=== PATIENT | female | born 1950 | race Caucasian/White ===

== ENCOUNTER 2020-10-06 18:45 | Outpatient (REF) | payer OTHER, MEDICARE, SELFPAY ==
[2020-10-06 13:51] LABS: ALT 84 U/L (14-59); AST 55 U/L (15-37); Albumin 3.6 g/dL (3.4-5.0); Alkaline Phosphatase 89 U/L (46-116); Anion Gap 6.2 mmol/L (3-11); BUN 16 mg/dL (7-18); Bilirubin, Total 0.4 mg/dL (0.2-1.0); CO2 28.8 mmol/L (21.0-32.0); CREATININE 0.88 mg/dL (0.55-1.02); Calcium 8.9 mg/dL (8.5-10.1); Calculated LDL 145 mg/dL (<100); Chloride 103 mmol/L (98-107); Cholesterol 213 mg/dL (<200); Glucose 99 mg/dL (74-106); HDL Cholesterol 41 mg/dL (40-60); Potassium 4.6 mmol/L (3.5-5.1); Sodium 138 mmol/L (136-145); TSH 2.62 uIU/mL (0.36-3.74); Total Protein 7.6 g/dL (6.4-8.2); Triglyceride 138 mg/dL (<150)
[2020-10-06 14:02] LABS: Vitamin D 25 Total 57.2 ng/ml (30-100)
[2020-10-06 14:53] LABS: Hemoglobin A1C 5.8 % (<5.7)
[2020-10-06 14:58] LABS: FREE T4 1.42 ng/dL (0.76-1.46)
== END 2020-10-06 19:05 ==
LOC: LBN 18:45
PROVIDERS: PCP Nurse Practitioner Family; Visit Provider Nurse Practitioner Family
DX: E03.9 Hypothyroidism, unspecified (principal); M85.80 Other specified disorders of bone density and structure, unspecified site
CPT/HCPCS: 80053; 80061; 82306; 83036; 84439; 84443

== ENCOUNTER 2020-10-31 11:24 | Outpatient (CLI) | payer OTHER, MEDICARE, SELFPAY ==
--- NOTE | 2020-10-31 11:00 | DI.RAD_ITS ---
EXAM: XR STANDING ALIGNMENT CLINICAL HISTORY: eval R knee OA for TKA. TECHNIQUE: 2D digital imaging was performed. COMPARISON: No exams were available for comparison FINDINGS: There is significant degenerative changes knees, most prominent in the medial compartment of the righ t knee where there is mlev-oh-suro apposition. Moderate narrowing of the medial compartment of the o pposite-left knee is noted. Hips appear relatively unremarkable as do the ankles. No lytic osseous lesions evident. IMPRESSION: DATA REPOSITORY: RADIATION DOSE DELIVERED:
--- NOTE | 2020-10-31 11:34 | DI.RAD_ITS ---
EXAM: XR KNEE RT 1V CLINICAL HISTORY: eval R knee, TKA. TECHNIQUE: 2D digital imaging was performed. COMPARISON: CR XR STANDING ALIGNMENT from 10/31/2020 FINDINGS: Single lateral view of the right knee reveals advanced osteoarthritic degenerative changes. This als o involves the patellofemoral compartment IMPRESSION: DATA REPOSITORY: RADIATION DOSE DELIVERED:
== END 2020-10-31 11:44 ==
PROVIDERS: PCP Nurse Practitioner Family; Referring Provider Nurse Practitioner Family; Visit Provider Student in an Organized Health Care Education/Training Program
DX: Z96.651 Presence of right artificial knee joint (principal)
CPT/HCPCS: 73560; 77073

== ENCOUNTER 2021-01-30 01:56 | Outpatient (CLI) | payer OTHER, MEDICARE, SELFPAY ==
[2021-01-30 10:20] LABS: Source Nasal/Nares
[2021-01-30 13:33] LABS: COVID-19 PCR Negative (Negative)
== END 2021-01-30 01:57 | disposition home or self-care (01) ==
LOC: LBO 01:56
PROVIDERS: PCP Nurse Practitioner Family; Visit Provider Student in an Organized Health Care Education/Training Program
DX: Z20.822 Contact with and (suspected) exposure to COVID-19 (principal); Z01.818 Encounter for other preprocedural examination
CPT/HCPCS: 87635; U0003

== ENCOUNTER 2021-01-30 02:17 | Outpatient (CLI) | payer OTHER, MEDICARE, SELFPAY ==
[2021-01-30 09:21] LABS: HCT 48.3 % (36.0-46.0); HGB 15.7 g/dL (11.2-15.7); MCH 30.3 pg (27.0-33.0); MCHC 32.5 % (32.0-36.0); MCV 93.1 fL (80-95); MPV 11.6 fL (8.0-11.0); Platelet Count 274 10^3/uL (130-400); RBC 5.19 10^6/uL (3.93-5.22); RDW 12.6 % (11.7-14.6); RDW-SD 43.2 fL; WBC 9.52 10^3/uL (4.4-10.8)
[2021-01-30 10:09] LABS: ALT 71 U/L (14-59); AST 41 U/L (15-37); Albumin 3.5 g/dL (3.4-5.0); Alkaline Phosphatase 90 U/L (46-116); Anion Gap 6.2 mmol/L (3-11); BUN 14 mg/dL (7-18); Bilirubin, Total 0.4 mg/dL (0.2-1.0); CO2 32.8 mmol/L (21.0-32.0); CREATININE 0.8 mg/dL (0.55-1.02); Calcium 9.2 mg/dL (8.5-10.1); Chloride 105 mmol/L (98-107); Glucose 89 mg/dL (74-106); Potassium 4.9 mmol/L (3.5-5.1); Sodium 144 mmol/L (136-145); Total Protein 7.6 g/dL (6.4-8.2)
[2021-02-02 11:04] LABS: Hepatitis C Ab w Rflx HCV PCR Negative (Negative)
== END 2021-01-30 02:18 | disposition home or self-care (01) ==
PROVIDERS: PCP Nurse Practitioner Family; Visit Provider Student in an Organized Health Care Education/Training Program
DX: R79.89 Other specified abnormal findings of blood chemistry (principal); M25.561 Pain in right knee; M17.11 Unilateral primary osteoarthritis, right knee; Z11.59 Encounter for screening for other viral diseases; Z01.818 Encounter for other preprocedural examination; Z01.812 Encounter for preprocedural laboratory examination
CPT/HCPCS: 36415; 80048; 80053; 85027; 86803

== ENCOUNTER 2021-02-03 06:04 | Day surgery (SDC) | payer OTHER, MEDICARE, SELFPAY ==
[2021-02-03] VITALS (12 sets, daily range): BP systolic 103–155; BP diastolic 54–94; PULSE 70–86; RESP 12–20; TEMP 35.9–36.2; TEMPC 36.2; O2SAT 95–98; BMI 42.0
[2021-02-03] MEDS: Lactated Ringers 1,000 ML 80 ML IV (06:48)
[2021-02-03] MEDS: Gabapentin 300 MG CAP PO (06:48)
[2021-02-03] MEDS: Celecoxib 200 MG CAP 400 MG PO (06:48)
[2021-02-03] MEDS: Acetaminophen 500 MG TAB 1000 MG PO (06:48)
--- NOTE | 2021-02-03 06:48 | W.ANESPRE ---
General Info Date of Service Date Performed: 02/03/21 Height: 5 ft 4.5 in Weight: 113 kg Body Mass Index (BMI): 42.0 Surgical Procedure: Operation Date: 02/03/21 07:40 Proposed Procedures Side Surgeon p Knee Total Arthroplasty Right Eron Guerrero MD Meds Allergies and Home Medications Allergies Allergy/AdvReac Type Severity Reaction Status Date / Time epinephrine Allergy Unknown Other (See Unverified 02/03/21 06:37 Comment) Home Medication Medication Instructions Recorded ibuprofen 200 mg tablet 200 mg PO Q6H PRN 10/06/20 Synthroid 125 mcg tablet 125 mcg PO DAILY #90 tab NS 10/08/20 calcium carbonate 600 mg (1,500 1 cap PO DAILY 11/06/20 mg)-vitamin D3 500 unit capsule Current Visit Medications: Current Medications Generic Name Dose Route Start Last Admin Trade Name Freq PRN Reason Stop Dose Admin Acetaminophen 1,000 mg 02/03/21 06:00 Acetaminophen 500 Mg Tab PO 02/03/21 16:00 PREOP SOURAV Celecoxib 400 mg 02/03/21 06:00 Celecoxib 200 Mg Cap PO 02/03/21 16:00 PREOP SOURAV Ephedrine Sulfate 0 mg 02/03/21 06:46 Ephedrine 50 Mg/Ml Vial IVP DIRECTED PRN Fentanyl 0 mcg 02/03/21 06:46 Fentanyl 100 Mcg/2 Ml Vial IVP DIRECTED PRN Gabapentin 300 mg 02/03/21 06:00 Gabapentin 300 Mg Cap PO 02/03/21 16:00 PREOP SOURAV Hydromorphone HCl 0 mg 02/03/21 06:46 Hydromorphone 2 Mg/Ml Vial IVP DIRECTED PRN Tranexamic Acid 1,000 mg/ 60 mls @ 360 mls/hr 02/03/21 06:00 Sodium Chloride IVPB 02/03/21 16:00 PREOP SOURAV Tranexamic Acid 1,000 mg/ 60 mls @ 360 mls/hr 02/03/21 06:00 Sodium Chloride IVPB 02/03/21 16:00 DIRECTED SOURAV Ringer's Solution 1,000 mls @ 80 mls/hr 02/03/21 06:00 IV 03/04/21 23:59 INFUSION SOURAV Cefazolin Sodium/Dextrose 2 gm in 50 mls @ 100 mls/hr 02/03/21 06:00 Ancef Duplex IVPB 02/03/21 23:59 PREOP SOURAV IV Miscellaneous Supplies 1 each 02/03/21 06:00 Iv Access IV 03/04/21 23:59 DIRECTED SOURAV Naloxone HCl 0 mg 02/03/21 06:46 Naloxone 0.4 Mg/Ml Vial IVP PRN PRN Sodium Chloride 0 ml 02/03/21 06:00 Normal Saline Flush 10 Ml Syr IV 03/04/21 23:59 PRN PRN Sodium Chloride 0 ml 02/03/21 06:00 Normal Saline 10 Ml Vial IJ 03/04/21 23:59 DIRECTED PRN Sterile Water 0 ml 02/03/21 06:00 Water,Injection,Sterile 10 Ml Vial IJ 03/04/21 23:59 DIRECTED PRN PFSH Active Problems Active Problems: Problem Status Onset Code Osteoarthritis of left knee M17.12 Prediabetes R73.03 Osteoarthritis of right knee M17.11 Hyperlipidemia E78.5 Depressive disorder F32.9 Rosacea L71.9 Obesity E66.9 Vitamin D deficiency E55.9 Osteopenia M85.80 Hypothyroidism E03.9 Medical History Medical History Depressive disorder Endometrial hyperplasia without atypia Hyperlipidemia Hypothyroidism Obesity Osteopenia 2017 DEXA T score L-spine 0.3: L femoral neck -1.3; right femoral neck -1.1 Postmenopausal bleeding Prediabetes Rosacea Vitamin D deficiency Surgical History Surgical History H/O dilation and curettage (~04/2016) With endometrial polypectomy for postmenopausal vaginal bleeding S/P right knee arthroscopy (05/01/13) S/P tonsillectomy and adenoidectomy Tobacco Smoking/Tobacco Use Status: Never Passive smoking exposure: Yes Alcohol Alcohol Intake: current Alcohol intake frequency: a few times a month Alcohol type: wine and hard liquor Substance Use Substance use: Never Substance use type: does not use Prental History History 2 Para 1 Hx # Term Pregnancies Multiple births Hx # Pregnancies Ectopic pregnancies AB induced Hx Number of Living Children 1 AB spontaneous 2 Vital Signs and Lab Results Vital Signs Most Recent Vital Signs in EMR: Most Recent Vital Signs Temp Pulse Resp BP Pulse Ox 36.2 C L 86 16 146/78 H 95 05/04/21 06:20 02/03/21 06:20 02/03/21 06:20 02/03/21 06:20 02/03/21 06:20 Lab Results Blood Type / Crossmatch: No Data to Display Complete Blood Count: White Blood Count 9.52 10^3/uL (4.4-10.8) 01/30/21 09:11 01/30/21 Red Blood Count 5.19 10^6/uL (3.93-5.22) 01/30/21 09:11 01/30/21 Hemoglobin 15.7 g/dL (11.2-15.7) 01/30/21 09:11 01/30/21 Hematocrit 48.3 % (36.0-46.0) H 01/30/21 09:11 01/30/21 Platelet Count 274 10^3/uL (130-400) 01/30/21 09:11 01/30/21 Complete Metabolic Panel: Sodium Level 144 mmol/L (136-145) 01/30/21 09:11 01/30/21 Potassium Level 4.9 mmol/L (3.5-5.1) 01/30/21 09:11 01/30/21 Chloride Level 105 mmol/L (98-107) 01/30/21 09:11 01/30/21 Carbon Dioxide Level 32.8 mmol/L (21.0-32.0) H 01/30/21 09:11 01/30/21 Blood Urea Nitrogen 14 mg/dL (7-18) 01/30/21 09:11 01/30/21 Creatinine 0.8 mg/dL (0.55-1.02) 01/30/21 09:11 01/30/21 Calcium Level 9.2 mg/dL (8.5-10.1) 01/30/21 09:11 01/30/21 Albumin 3.5 g/dL (3.4-5.0) 01/30/21 09:11 01/30/21 Glucose Level 89 mg/dL (74-106) 01/30/21 09:11 01/30/21 Hemoglobin A1c 5.8 % (<5.7) H 10/06/20 08:50 10/06/20 Liver Function Panel: Alanine Aminotransferase (ALT/SGPT) 71 U/L (14-59) H 01/30/21 09:11 01/30/21 Aspartate Amino Transf (AST/SGOT) 41 U/L (15-37) H 01/30/21 09:11 01/30/21 Coagulation Panel: No Data to Display Cardiac Panel: No Data to Display Arterial Blood Gas: No Data to Display Venous Blood Gas: No Data to Display Pancreas Panel: No Data to Display Thyroid Panel: Thyroid Stimulating Hormone (TSH) 2.62 uIU/mL (0.36-3.74) 10/06/20 08:50 10/06/20 Infectious Disease: Coronavirus (COVID-19)(PCR) Negative (Negative) 01/30/21 09:18 01/30/21 Coronavirus 2019 Source Nasal/nares 01/30/21 09:18 01/30/21 Hepatitis C Antibody Negative (Negative) 01/30/21 09:11 01/30/21 Blood Cultures: No Data to Display Toxicology Panel: No Data to Display Panel: No Data to Display Anesthesia Assessment and Plan Anesthesia History Personal History: No History of Anesthesia Complications Family History: No Family History of Anesthesia Complications Exercise Tolerance Exercise Tolerance: Metabolic Equivalents>4 Pertinent Negatives Pertinent Negatives: No Symptoms of GERD, No Major Cardiovascular Symptoms or Complaints and No Major Pulmonary Symptoms or Complaints (Reports occaisional ) Cardiac & Pulmonary Exam Cardiac Exam: Normal S1/S2 Heart Sounds Pulmonary Exam: Wheezing Present (Expiratory) Airway Exam Known Difficult Airway: No Mallampati Class: 3 Mouth Opening: Normal (> 3cm) Thyromental Distance: Greater than 3 cm Neck Range of Motion: Full ROM Neck Circumference: Normal Teeth Condition: Normal Dentition ASA Classification ASA Score: ASA 3 ASA Emergency: No NPO Status NPO Status: NPO Clears >2 hours, Solids >8 hours Anesthesia Plan Anesthesia Technique: Spinal Anesthesia (with general with natural airway) Airway Planned: Natural Airway Pain Management: Surgeon and patient request nerve block Monitors Used: Standard Monitors
--- NOTE | 2021-02-03 07:31 | DSE_ITS ---
Documented by User: BELL Diallo 02/03/21 07:37 DS: Diagnosis Discharge Diagnosis (1) Osteoarthritis of right knee: Status: Acute Discharge Plan Disposition Patient Disposition: HOME Condition: Good Discharge Details Reason For Visit: Right Knee DJD Attending Provider: Eron Guerrero Primary Care Provider: Maryellen Painter Home Meds and New Rx's Prescriptions: New celecoxib [Celebrex] 200 mg capsule 200 mg PO BID Qty: 60 RF: 0 aspirin 81 mg tablet,delayed release (DR/EC) 81 mg PO BID Qty: 60 RF: 0 acetaminophen [Tylenol Extra Strength] 500 mg tablet 500 mg PO Q6H PRNQty: 90 RF: 0 pantoprazole [Protonix] 40 mg tablet,delayed release (DR/EC) 40 mg PO DAILY Qty: 30 RF: 0 gabapentin 300 mg capsule 300 mg PO QHS Qty: 14 RF: 0 oxycodone 5 mg tablet 5 mg PO Q4H PRNQty: 18 RF: 0 Continued calcium carbonate-vitamin D3 [Calcium 600 with Vitamin D3] 600 mg(1,500mg) - 500 unit capsule 1 cap PO DAILY RF: 0 levothyroxine [Synthroid] 125 mcg tablet 125 mcg PO DAILY Qty: 90 RF: 4 Discontinued ibuprofen 200 mg tablet 200 mg PO Q6H PRNRF: 0 Discharge Instructions Additional Instructions: Total Knee Discharge Instructions Activity: The most important activity is to walk. You should try to take short walks a few times a day. It is important that when resting you work on keeping the knee straight. Avoid putting a pillow behind the knee as this will encourage flexion. Work on range of motion exercises as provided by Physical Therapy. - Start outpatient physical therapy within 2 weeks. - You should wear the VALERIY hose on both legs for 2 weeks. You may remove these at night. You may also use any compression sock in place of the VALERIY hose. Dressing: You may remove the Ronal wrap on your leg 2 days after your surgery and put on the VALERIY stocking given to you from the hospital. Keep the surgical dressing (underneath the RONAL wrap) in place for at least one week. After the first week it may be removed and replaced with light gauze and tape or nothing. The wound and dressing may get wet after 3 days but avoid soaking the dressing or otherwise it will need to be changed. Many people prefer covering the dressing with cling wrap (saran wrap) to minimize it from getting soaked. If it gets wet, just pat dry. If it starts to peel off then it will need to be changed. Medications: - You should take Tylenol and anti-inflammatory Celebrex as your primary pain control medications. If the Celebrex is too expensive or not covered, please call the office for another alternative (Advil/Ibuprofen or Naproxen/Aleve) - You have been prescribed a stronger pain medication Oxycodone for breakthrough pain, take as needed as prescribed. - You have also been prescribed a stomach acid reduction agent Pantoprozole to help reduce stomach acid and reflux. - You have been prescribed Gabapentin to take at night for restlessness and nerve pain. - You will be taking Aspirin 81mg twice a day for DVT prevention unless instructed otherwise. - If you have constipation you should take Colace or Miralax (both [id number]). It takes most people 3-4 days to have a bowel movement. Follow-up: 2 weeks If you have any acute concerns or questions, please do not [facility] at [phone]. You may contact Dr. Guerrero with any questions after hours through the hospital at [phone] or on his cell phone at [phone]. Referrals: Eron Guerrero MD [ [facility] STAFF PHYSICIAN] - Equipment/Supplies: Walker Activity:: Activity as Tolerated Remove Dressings/Wound Care:: Do Not Remove Shower/Bathe:: 72 hours Diet:: As Tolerated Discharge Orders Discharge Orders: Discharge Order (Routine); Ordered 02/03/21 Ordered By: Sonia Gonzales DS: Summary Time Spent with Patient providing and/or coordinating discharge services: Less than 30 minutes Status at Discharge Functional status at discharge: uses cane/walker Overall status at discharge: patient is progressing back to baseline Mental Status: mental status grossly normal Speech and Movement: speech and movement normal Mood: congruent mood Affect: normal affect Exam Psych Mental Status: mental status grossly normal Speech and Movement: speech and movement normal Mood: congruent mood Affect: normal affect DS: Data Vitals/I&O Vitals and I&O: Vital Signs Temperature 97.2 F L 02/03/21 06:20 Pulse 86 02/03/21 06:20 Pulse Rhythm Regular 02/03/21 06:20 Respiratory Rate 16 02/03/21 06:20 Respiratory Depth Normal 02/03/21 06:20 Blood Pressure 146/78 H 02/03/21 06:20 Pulse Oximetry 95 02/03/21 06:20 Oxygen Delivery Method Room Air 02/03/21 06:20 Oxygen Flow Rate 0 02/03/21 06:20 Pain Level 0 02/03/21 06:20 Intake & Output 02/02/21 02/02/21 02/03/21 11:59 23:59 11:59 Weight 249 lb 1.957 oz Other: Voiding Methods Toilet [facility] Medical History Depressive disorder Endometrial hyperplasia without atypia Hyperlipidemia Hypothyroidism Obesity Osteopenia 2017 DEXA T score L-spine 0.3: L femoral neck -1.3; right femoral neck -1.1 Postmenopausal bleeding Prediabetes Rosacea Vitamin D deficiency Surgical History H/O dilation and curettage (~04/2016) With endometrial polypectomy for postmenopausal vaginal bleeding S/P right knee arthroscopy (05/01/13) S/P tonsillectomy and adenoidectomy Family History Mother , 83 Renal cancer Depression Heart disease Father , 86 Heart disease Son Alcohol abuse Depression COPD (chronic obstructive pulmonary disease) Paternal Grandfather No problems noted. Paternal Grandmother Diabetes Kidney disease Maternal Grandfather No problems noted. Maternal Grandmother Depression Social History Smoking/Tobacco Use Status: Never Smoking risk assessment performed?: Yes Alcohol Intake: current Alcohol Intake frequency: a few times a month Alcohol type: wine and hard liquor Drug use: Never Substance use type: does not use Caregiver/Support person: No Household members: spouse Housing: house Communication Needs: None Do you need help understanding health information?: Never Pets and animals: Yes Pets and animals: cat(s) Sexually active: Yes Do you think of yourself as: lesbian/ortiz/homosexual Current gender identity: female What is your relationship status?: How often do you talk on the phone with friends or family?: once per week How often do you attend methodist or advent services?: 4 or more times per year Do you belong to any clubs or organized social groups?: no Panel score (0-1 are the most socially isolated patients): 2 What type of physical activity do you participate in: swimming and other Details: gardening Duration: 45-60 minutes/day Frequency: 3-4 times per week Inna/Lutheran: Congregational Seatbelt use: always Helmet use: Yes Helmet use: always Drive intox or ride w/intox 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 Documented by User: Eron Guerrero MD 02/03/21 13:17 Date of service: 02/03/21 Time of Service: 13:17 Discharge Plan Disposition Patient Disposition: HOME Condition: Good Discharge Details Reason For Visit: Right Knee DJD Attending Provider: Eron Guerrero Primary Care Provider: Maryellen Painter Home Meds and New Rx's Prescriptions: New celecoxib [Celebrex] 200 mg capsule 200 mg PO BID Qty: 60 RF: 0 aspirin 81 mg tablet,delayed release (DR/EC) 81 mg PO BID Qty: 60 RF: 0 acetaminophen [Tylenol Extra Strength] 500 mg tablet 500 mg PO Q6H PRNQty: 90 RF: 0 pantoprazole [Protonix] 40 mg tablet,delayed release (DR/EC) 40 mg PO DAILY Qty: 30 RF: 0 gabapentin 300 mg capsule 300 mg PO QHS Qty: 14 RF: 0 oxycodone 5 mg tablet 5 mg PO Q4H PRNQty: 18 RF: 0 Continued calcium carbonate-vitamin D3 [Calcium 600 with Vitamin D3] 600 mg(1,500mg) - 500 unit capsule 1 cap PO DAILY RF: 0 levothyroxine [Synthroid] 125 mcg tablet 125 mcg PO DAILY Qty: 90 RF: 4 Discontinued ibuprofen 200 mg tablet 200 mg PO Q6H PRNRF: 0 Discharge Instructions Additional Instructions: Total Knee Discharge Instructions Activity: The most important activity is to walk. You should try to take short walks a few times a day. It is important that when resting you work on keeping the knee straight. Avoid putting a pillow behind the knee as this will encourage flexion. Work on range of motion exercises as provided by Physical Therapy. - Start outpatient physical therapy within 2 weeks. - You should wear the VALERIY hose on both legs for 2 weeks. You may remove these at night. You may also use any compression sock in place of the VALERIY hose. Dressing: You may remove the Ronal wrap on your leg 2 days after your surgery and put on the VALERIY stocking given to you from the hospital. Keep the surgical dressing (underneath the RONAL wrap) in place for at least one week. After the first week it may be removed and replaced with light gauze and tape or nothing. The wound and dressing may get wet after 3 days but avoid soaking the dressing or otherwise it will need to be changed. Many people prefer covering the dressing with cling wrap (saran wrap) to minimize it from getting soaked. If it gets wet, just pat dry. If it starts to peel off then it will need to be changed. Medications: - You should take Tylenol and anti-inflammatory Celebrex as your primary pain control medications. If the Celebrex is too expensive or not covered, please call the office for another alternative (Advil/Ibuprofen or Naproxen/Aleve) - You have been prescribed a stronger pain medication Oxycodone for breakthrough pain, take as needed as prescribed. - You have also been prescribed a stomach acid reduction agent Pantoprozole to help reduce stomach acid and reflux. - You have been prescribed Gabapentin to take at night for restlessness and nerve pain. - You will be taking Aspirin 81mg twice a day for DVT prevention unless instructed otherwise. - If you have constipation you should take Colace or Miralax (both [id number]). It takes most people 3-4 days to have a bowel movement. Follow-up: 2 weeks If you have any acute concerns or questions, please do not hesitate to contact the office at [phone]. You may contact Dr. Guerrero with any questions after hours through the hospital at [phone] or on his cell phone at [phone]. Referrals: Eron Guerrero MD [ [facility] STAFF PHYSICIAN] - Equipment/Supplies: Walker Activity:: Activity as Tolerated Remove Dressings/Wound Care:: Do Not Remove Shower/Bathe:: 72 hours Diet:: As Tolerated Discharge Orders Discharge Orders: Discharge Order (Routine); Ordered 02/03/21 Ordered By: Sonia Gonzales [facility] Medical History Depressive disorder Endometrial hyperplasia without atypia Hyperlipidemia Hypothyroidism Obesity Osteopenia 2016 DEXA T score L-spine 0.3: L femoral neck -1.3; right femoral neck -1.1 Postmenopausal bleeding Prediabetes Rosacea Vitamin D deficiency Surgical History H/O dilation and curettage (~04/2016) With endometrial polypectomy for postmenopausal vaginal bleeding S/P right knee arthroscopy (05/01/13) S/P tonsillectomy and adenoidectomy Family History Mother , 83 Renal cancer Depression Heart disease Father , 86 Heart disease Son Alcohol abuse Depression COPD (chronic obstructive pulmonary disease) Paternal Grandfather No problems noted. Paternal Grandmother Diabetes Kidney disease Maternal Grandfather No problems noted. Maternal Grandmother Depression Social History Smoking/Tobacco Use Status: Never Smoking risk assessment performed?: Yes Alcohol Intake: current Alcohol Intake frequency: a few times a month Alcohol type: wine and hard liquor Drug use: Never Substance use type: does not use Caregiver/Support person: No Household members: spouse Housing: house Communication Needs: None Do you need help understanding health information?: Never Pets and animals: Yes Pets and animals: cat(s) Sexually active: Yes Do you think of yourself as: lesbian/ortiz/homosexual Current gender identity: female What is your relationship status?: How often do you talk on the phone with friends or family?: once per week How often do you attend methodist or advent services?: 4 or more times per year Do you belong to any clubs or organized social groups?: no Panel score (0-1 are the most socially isolated patients): 2 What type of physical activity do you participate in: swimming and other Details: gardening Duration: 45-60 minutes/day Frequency: 3-4 times per week Inna/Lutheran: Congregational Seatbelt use: always Helmet use: Yes Helmet use: always Drive intox or ride w/intox 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
[2021-02-03] MEDS: ceFAZolin 2 GM/50 ML BAG IVPB (07:36)
--- NOTE | 2021-02-03 08:15 | W.ANESNERVE ---
Nerve Block Single Injection Procedure Date and Time Date Performed: 02/03/21 Procedure Start: 07:22 Location Where Procedure Performed Procedure Location: PACU Reason Performed: Postoperative Analgesia Requesting Provider: Eron Guerrero Timeout Performed Timeout Performed: Yes Monitoring Used ECG, Blood Pressure and SpO2 Sterility Sterility: Hand Hygiene, Surgical Cap, Surgical Mask, Sterile Gloves and Chlorhexidine Sedation Given During Procedure Sedation Given (Indicate Dose Given): No Sedation given Patient Mental Status Patient Mental Status: Awake Nerve Block 1st Nerve Block: Laterality: Right Block Type: Adductor Canal Needle / Catheter Used: 100mm SonoPlex II Local Anesthetic Bolus (Indicate Dose Given): Lidocaine used for local infiltration of skin, Injected in 3-5ml increments after negative blood aspiration and Bupivacaine 0.5% (10) Additives (Indicate Dose Given): None Ultrasound: Sterile probe cover and gel used Ultrasound Image Saved?: Yes Nerve Stimulator: Not Used Paresthesia: None Procedure Tolerated: No Complications Procedure Outcome: Successful Performed By: El Olguin
[2021-02-03] MEDS: Normal Saline 20 ML VIAL (08:27)
[2021-02-03] MEDS: Bupivacaine 0.5% Pres-Free 30 ML VIAL (08:27)
[2021-02-03] MEDS: Ketorolac 30 MG/ML VIAL (08:28)
--- NOTE | 2021-02-03 10:20 | ROE_ITS ---
Date of service: 02/03/21 Time of Service: 10:21 Operative Note Operative Note DATE OF PROCEDURE: 02/03/21 PRE-OP DIAGNOSIS: Right Knee Osteoarthritis POST-OP DIAGNOSIS: same PROCEDURE: Right Total Knee Replacement SURGEON: Eron Guerrero [employer]ING [employer] ATTENDANT: Sonia Gonzales ANESTHESIA TYPE: Spinal Refer to Anesthesia Record ESTIMATED BLOOD LOSS: 250 PATHOLOGY: none sent TOURNIQUET TIME: 30 COMPLICATIONS: None Patient was transported to: PACU Patient's condition: stable Implants: 1. Depuy Attune Cruciate Retaining Femoral Component, Size 5 narrow 2. Depuy Attune Rotating Platform Tibial Component, Size 4 3. Depuy Attune 5x7mm CR,RP Poly 4. Depuy Attune Patellar Component, Size 38 Indications: I have seen Sara in clinic for symptoms of knee arthritis, confirmed with radiographic findings. Sara has exhausted nonoperative methods and was having significant limitations in daily function and desired better function and less pain. I discussed the technical details of a knee replacement. I explained the risks of the procedure to include, but not limited to, bleeding, infection, pain, stiffness, fracture, damage to nerves and vessels, damage to muscles and tendons, loosening, need for repeat procedure, blood clot and cardiopulmonary demise. Despite these risks, Sara elected to proceed. Findings: There was significant signs of arthritis throughout the knee. Procedure Description: Sara was greeted in the preoperative holding area where the correct side was identified and marked. The consent was reviewed with the patient and signed. The history and physical was updated. All questions were answered. Preoperative mediacations were administered: Acetaminophen 1000mg, Celebrex 400mg, and Gabapentin 300mg. An adductor canal block was then administered by the anesthesia team in the PACU. Sara was taken back to the operating room. A spinal anesthestic was then administered. The patient was placed into the supine position on the operating room table. A nonsterile tourniquet was placed high onto the leg but only used for cementing. Posts were placed for positioning during the procedure. All bony prominences were well padded. Prophylactic antibiotics in the form of Cefazolin were administered. 1g of Tranxemic Acid was given intravenously within 30 minutes of incision. The right leg was then prepped with Chloraprep and draped in a standard fashion with impervious stockinette and extremity drape. A second prep with Chloraprep was performed prior to placing Ioband. A timeout to confirm correct identity, side and site, procedure, allergies, anesthesia, and medical concerns was performed. With the knee in some flexion, a midline incision was made overlying the knee. Full thickness skin flaps were raised once the extensor mechanism was encountered. These were raised medially and laterally. Any bleeding was controlled with electrocautery. Once the extensor mechanism was fully exposed, a medial parapatellar arthrotomy was performed in a flexed position. All bleeding from the arthrotomy and the geniculate arteries was coagulated. A medial subperiosteal peel was performed with electrocautery to the midcoronal plane. Due to the significant varus deformity the entire medial tibial plateau was exposed. The fat pad was removed while keeping the patellar tendon protected. The anterior distal femur synovium was removed for later visualization. The ACL and PCL were resected and the anterior horn of the lateral meniscus was transected. The knee was then flexed with the patella everted. Large osteophytes from the tibia were removed. Large osteophytes from the femur were removed. Using a step drill, and based on preoperative templating, the femoral canal was entered. This was done with a step drill without any difficulty. The intramedullary distal femoral cut guide was inserted, set to a 5 degree valgus cut and 10mm cut thickness. There was some hypoplasia of the lateral femoral condyle and any remnant cartilage of the medial femoral condyle was removed for appropriate thickness. The distal femoral cut guide was then held in position and pinned. With the soft tissues protected, the distal cut was performed. This was passed over a few times to ensure a planar cut. I then turned attention to the tibia. The extramedullary guide was placed onto the leg. The distal aspect was slid medial to adjust for position of center of ankle and stay in line with shaft of the tibia. Approximately 3-5 degrees of posterior slope was kept in the proximal cutting guide. The center of the guide was aligned with the PCL. The stylus was used to assess cut thickness. The medial side, most involved side, was set for a 3mm cut, corresponding to 9mm laterally. This was then held in position and pinned into place with 2 additional pins and a cross pin for stability. The medial and lateral collateral ligaments were protected and the cut was performed. With this completed, it was assessed and noted to be of appropriate dimensions. The guide was removed. A spacer block was inserted and the knee was brought into extension. The 6mm spacer block provided full extension, without hyperextension and with stability of both the medial and lateral collateral ligaments was assessed. The pins from the femur and the tibia were then removed. The distal femur was then sized. The anterior stylus was placed onto the lateral ridge of the anterior femur. This indicated a size 5 narrow femur. The external rotation of the guide was adjusted to 3 degrees to match the epicondyl ar axis, perpendicular to Emmons?s line. The 4-in-1 cutting guide was the placed. The posterior medial femur cut was evaluated and appeared of good thickness. The spacer block was inserted underneath the cutting guide and stability was confirmed in 90 degrees of flexion. An anusha wing was used to confirm appropriate position of the anterior cut to avoid notching. This cutting guide was ensured to be flush on the cut surface and then pinned into place with headed pins. While protecting the soft tissues, quad tendon, and collateral ligaments, the anterior and posterior cuts were performed with a saw. The central two pins were removed and the posterior and anterior chamfers were cut next. The notch-cutting guide was placed. This was pinned to lateralize the femoral component as much as possible while keeping it flush on the cut surface. This was then pinned into position. A reciprocating saw was used to make the small notch cut. A trial CR femoral component was then inserted, impacted down to the cut surfaces, and the lug holes were drilled. A provisional trial tibial component was placed and the knee was brought through range of motion. There was noted to be excellent extension and flexion. There was no significant instability. The polyethylene was trialed until there was good flexion and extension with excellent stability to the medial and lateral collaterals. The patella was tracking without thumbs. The tibial cut surface was fully exposed. The medial and lateral menisci were removed. The tibia was then sized as a 4. The tibia had been previously marked during trialing to correspond to the center of the tibial component to help with rotation. The trial was aligned to this sugey, approximately rotated to the medial 1/3rd of the tibial tubercle. The trial was pinned into place. The tibia was prepared with a reamer and a keel punch. The knee was then brought into extension and the patella was measured as 24mm. Using the patellar clamp and cut guide, this was resected to a flat surface with at least 13mm of thickness remaining. The size 38 patella fit the best. This was oriented and then clamped into position. The lugs were drilled. The trial components were removed. The final components, except for the polyethylene were opened on the back table. The periosteal and capsular tissues, especially posteriorly, around the knee were then systematically injected with a periarticular cocktail consisting of 50cc 0.25% Marcaine, 30mg Ketorolac, 20cc of Exparal and 50cc of injectable saline. The tourniquet was then inflated to 275mmHg. The knee was thoroughly irrigated with a pulse lavage and dried. On the back table, with the implants opened, the cement was mixed. 2 batches of medium viscosity cement were prepared with vacuum assistance. After the cement was ready it was placed on to the back side of the tibial component. A small amount was placed onto the posterior flange of the femur. Cement was manual pressurized and impregnated into the cut surface of the tibia. The tibial component was then inserted into the cut surface and impacted into position. Excess cement was removed and the component was reimpacted. Again, excess cement was removed and our attention was then turned to the femur. The femoral cut surface was once again dried and cement was manually impacted into the cut surface. The femoral component was lined with the lug holes and impacted. Excess cement was removed. It was ensured to be down against the cut surface. The trial polyethylene was then inserted and the leg was brought out into full extension for the duration of the cement curing process, approximately 18min. Cement was lastly manually impacted into the cut surface of the patella and the patellar button was clamped into position and held. During this process attention was turned to the gutters of the knee and for all interfaces for any excess cement. While the cement was hardening, the knee was irrigated with Irrisept chlorhexadine solution. It was allowed to sit in the knee for 3 minutes. After the cement had finally cured, approximately 18min, the clamp was removed from the patella and the knee was taken through range of motion. A size 7mm polyethylene component provided the best range of motion and stability with less than 2mm gapping with medial and lateral stress and full extension without sig nificant hyperextension. The patella was tracking with a no-thumbs technique. The trial poly was removed and once again the knee was checked for any loose, excess, or errant cement. The poly component was then inserted into position after cleaning and drying the tibial tray. The capsule was then reapproximated with a No. 1 Vicryl at multiple locations. The capsule was finally closed with a No. 2 Stratafix, barbed suture. The tourniquet was then released and the arthrotomy appeared watertight without significant bleeding. The second dosing of 1g TXA was started. Deep tissues were then reapproximated with 0 Vicryl and 2-0 Vicryl. The skin was closed with a running 3-0 Monocryl in a subcuticular fashion. This was reinforced with skin glue. A Mepilex silver dressing was applied along with a [id number] DEISY wrap. A CryoCuff was applied. Sara was transferred to the hospital bed without difficulty an suffering no apparent complication. Sara has a good prognosis. Physical therapy will start today and without restrictions, weight-bearing as tolerated. Aspirin 81mg BID will be used for DVT prophylaxis.
[2021-02-03] MEDS: fentaNYL 100 MCG/2 ML VIAL IVP ×3 (10:30→10:45)
[2021-02-03] MEDS: oxyCODONE 5 MG TAB PO (11:33)
--- NOTE | 2021-02-03 12:45 | W.ANESPOSTOP ---
Postoperative Evaluation Date, Time and Location Date Performed: 02/03/21 Time Performed: 12:46 Patient Location: Day Surgery Unit Vital Signs Most Recent Imported Vital Signs: Most Recent Vital Signs Temp Pulse Resp BP Pulse Ox 35.9 C L 86 16 150/94 H 95 02/03/21 11:00 02/03/21 11:00 02/03/21 11:53 02/03/21 11:00 02/03/21 11:53 Most Recent Manually Entered Vital Signs: Adult Blood Pressure: 141/62 Heart Rate: 82 Respirations: 12 Oxygen Saturation (%): 95 Temperature (C): 36.2 C Pain Score (0-10 Scale): 3 Pain Score Most Recent Pain Score: Most Recent Pain Score Pain Level 5 02/03/21 11:53 Assessment Mental Status: Awake (Alert & Oriented to Patient Baseline) Airway and Respiratory Function: Patent airway with normal (patient baseline) respiratory exam Cardiovascular Function: Hemodynamically Stable Hydration Status: Adequately Hydrated Nausea & Vomiting: No Nausea or Vomiting Pain: Pt. Denies Any Pain Peripheral Nerve Block: Patient did not receive a nerve block
--- NOTE | 2021-02-03 13:35 | PT.INIE ---
Date of service: 02/03/21 Time of Service: 13:35 PT Notes Visit Reasons: Right Knee DJD Physical Therapy Day Surgery Initial Evaluation Date: 02/04/2021 Referring Doctor: Eron Guerrero MD PT Orders: PT CONSULT: Eval/Treat. Precautions: WBAT on R LE with AD. Patient Profile/Admitting Diagnosis: Sara is a 70-year-old female with osteoarthritis of the right knee and is status post right total knee arthroplasty on postoperative day 0. PMHX: Medical History Depressive disorder Endometrial hyperplasia without atypia Hyperlipidemia Hypothyroidism Obesity Osteopenia 2016 DEXA T score L-spine 0.3: L femoral neck -1.3; right femoral neck -1.1 Postmenopausal bleeding Prediabetes Rosacea Vitamin D deficiency Surgical History H/O dilation and curettage (~04/2016) With endometrial polypectomy for postmenopausal vaginal bleeding S/P right knee arthroscopy (05/01/13) S/P tonsillectomy and adenoidectomy Social History/Home Situation: Lives with significant other in a private home with 3 steps to enter without rails. Equipment Owned/DME: [facility] Subjective: Agreeable to PT consult. Reported being a bit queasy after ambulation activity, resolved with rest. Objective: General Observation: Supine in bed. Cryo/Cuff on right LE. DEISY wraps on the right LE. IV access in right UE. Mental Status: Alert and oriented Pain: Discomfort along right lateral thigh at 2?3/10 ROM: Right Lower Extremity: Hip flexion WFL. Hip abduction WFL. Knee flexion 10 degrees to 90 degrees. Knee extension -10 degrees. Ankle dorsiflexion WFL. Ankle plantarflexion WFL. Left Lower Extremity: Hip flexion WFL. Hip abduction WFL. Knee flexion WFL. Ankle dorsiflexion WFL. Ankle plantarflexion WFL. Strength: Right Lower Extremity: Hip flexors 4/5. Hip abductors 4/5. Knee flexors 3-/5. Knee extensors 3-/5. Ankle dorsiflexors 5/5. Ankle plantarflexors 5/5. Left Lower Extremity:Hip flexors 5/5. Hip abductors 5/5. Knee flexors 5/5. Knee extensors 5/5. Ankle dorsiflexors 5/5. Ankle plantarflexors 5/5. Sensation: Intact as to pain and light touch in bilateral lower extremities Bed Mobility/Transfers: Supine to sit supervision Sit to stand contact-guard assist Stand to sit contact-guard assist Bed to chair standby assist Gait: Guided patient through level surface ambulation of 150 feet using a front wheeled walker with step through heel?toe gait pattern with WBAT on the right LE. Reported discomfort on the right lateral thigh after ambulation activity as well as sensation of mild lightheadedness that resolved with rest. Stairs: Tolerated up-and-down six 4-inch steps and four 6-inch steps while holding onto 1 rail and cane with step to gait pattern requiring contact-guard assist and standby assist of nurse Houser. Balance: Static Sitting: Normal Dynamic Sitting: Good Static Standing: Fair Dynamic Standing: Fair Special Tests: Mobility Limitations Standardized Measure [facility]-P[facility] 6 clicks Basic Mobility Inpatient Short Form: Raw Score: 22 CMS Score: 21% deficit Informed Consent/Education: Patient instructed in purpose of PT consult. Packet containing TKA exercise protocol has been given to patient. Education and training on initial set of exercises that can be done at home have been completed with patient. Assessment: Sara requires the use of a front wheeled walker to maximize independence and reduce fall risk at home. Significant other will be all for 1 whole week to provide for her as she recovers. She will benefit from the use of a front wheeled walker at home. Patient presents with clinical signs and symptoms consistent with current/admitting diagnoses that have resulted to mobility limitations, gait instability, generalized weakness, and impairment of motor control as demonstrated by the following impairment level findings: 1. Decreased strength to right knee major muscle groups 2. Impaired standing balance 3. Limitation of joint range of motion in right knee 4. Postoperative pain on the right thigh and knee Impairments are contributing to the following functional limitations: 1. Inability to safely ambulate without assistive device 2. Increase completion time for mobility ADL performance 3. Increased fall risk Patient is assessed as a [id number] moderate complexity based on the following: History: 70-year-old female with impairment level findings, functional limitations, and past medical history as indicated above Examination: Demonstrable impairment in strength, balance, and mobility level with underlying impairments and functional limitations as documented above Presentation: Evolving Decision Makin moderate complexity Goals: N/A. PT evaluation and 1-2 treatment sessions only for functional mobility training using recommended AD and for HEP instruction. Plan of Care/Treatment Plan: N/A. PT evaluation and 1-2 treatment session only for functional mobility training using recommended AD and for HEP instruction. DISCHARGE RECOMMENDATIONS: Home when medically cleared by orthopedic surgeon. Outpatient physical therapy services in order to achieve highest functional independence in the community. TREATMENT CODE/TIME: 26019 x 30 minutes, 86901 x 44 minutes beginning at 13:35 PM. Thank you for the opportunity to participate in the care of this patient. Tawana Bentley PT, DPT, CLT [facility] [place], [place]
== END 2021-02-03 16:00 | disposition home or self-care (01) ==
PROVIDERS: PCP Nurse Practitioner Family; Visit Provider Student in an Organized Health Care Education/Training Program
PROC: (CPT 27447; principal; 2021-02-03 07:30)
DX: M17.11 Unilateral primary osteoarthritis, right knee (principal); E03.9 Hypothyroidism, unspecified; R73.03 Prediabetes
CPT/HCPCS: 27447; 76942; 97162; 97530; J0690; J1100; J1885; J2250; J2405; J2704; J3010

== ENCOUNTER 2021-02-19 08:59 | Outpatient (CLI) | payer OTHER, MEDICARE, SELFPAY ==
--- NOTE | 2021-02-19 08:30 | DI.RAD_ITS ---
Exam(s) XR KNEE RT 1V EXAM: XR KNEE RT 1V CLINICAL HISTORY: 1st post op R TKA. TECHNIQUE: 2D digital imaging was performed. COMPARISON: CR XR KNEE RT 1V from 10/31/2020 FINDINGS: Single lateral view of the right knee compared to 10/31/2020 reveals interval placement prosthesis ap pears in satisfactory position alignment on this lateral view. No fracture or loosening evident on t his lateral view IMPRESSION: DATA REPOSITORY: RADIATION DOSE DELIVERED:
--- NOTE | 2021-02-19 08:30 | DI.RAD_ITS ---
Exam(s) XR STANDING ALIGNMENT EXAM: XR STANDING ALIGNMENT CLINICAL HISTORY: 1ST POST OP R TKA. TECHNIQUE: 2D digital imaging was performed. COMPARISON: CR XR STANDING ALIGNMENT from 10/31/2020 FINDINGS: There has been interval placement of a right knee prosthesis which appears to be in satisfactory posi tion alignment and without evidence of loosening. Significant narrowing of the medial compartment of the opposite-left knee is noted. Hips appear unremarkable as do the ankles. There are no osseous lesions. IMPRESSION: DATA REPOSITORY: RADIATION DOSE DELIVERED:
== END 2021-02-19 09:00 | disposition home or self-care (01) ==
LOC: DIORS 09:00
PROVIDERS: PCP Nurse Practitioner Family; Referring Provider Nurse Practitioner Family; Visit Provider Physician Assistant
DX: Z96.651 Presence of right artificial knee joint (principal); Z47.1 Aftercare following joint replacement surgery
CPT/HCPCS: 73560; 77073

== ENCOUNTER 2021-08-13 01:06 | Outpatient (CLI) | payer OTHER, MEDICARE, SELFPAY ==
--- NOTE | 2021-08-13 07:45 | DI.MAMMO_ITS ---
Exam(s) MAMMO SCREENING EXAM: MAMMO SCREENING CLINICAL HISTORY: screening,Z12.39 TECHNIQUE: Bilateral full field digital CC and MLO mammographic images were obtained with 3D tomosyn thesis and utilizing computer aided detection (CAD). COMPARISON: 2013 through 2019 from [facility] FINDINGS: Masses/Architectural Distortion: None seen. Microcalcifications: No suspicious pleomorphic-type are seen. Skin Thickening/Nipple Retraction: None. IMPRESSION: 1. No significant interval change with no specific features of malignancy noted. 2. Unless there is more urgent need, screening mammography is recommended, as per [place] guidelines. BI-RADS Category 1 - Negative Breast Density - Category B - Scattered areas of fibroglandular density A negative radiographic report should not delay biopsy if a dominant or clinically suspicious mass is present. Up to ten percent of cancers are not identified on mammography. A negative report may reinforce clinical impression. Adenosis and dense breasts may obscure an underlying neoplasm. False positive reports average 6 to 10%. Patient will receive a letter notifying them of these results.
--- NOTE | 2021-08-13 13:25 | DI.DEXA_ITS ---
Exam(s) XR DEXA BONE DENSITY W/WO HARSHAD EXAM: XR DEXA BONE DENSITY W/WO HARSHAD CLINICAL HISTORY: reassess bone density, hx of osteopenia,M85.80 TECHNIQUE: COMPARISON: No exams were available for comparison FINDINGS: DEXA scan was performed according to the usual protocol. Please see the accompanying data sheets. F indings for left hip scanning are T-score 0.6 with left femoral neck T-score -0.8. Findings for lumbar spine scanning are T-score -0.2. Findings for left forearm scanning are T-score -2.5. IMPRESSION: The findings are consistent with osteoporosis according to the WHO criteria. The lateral vertebral scanogram shows no evidence of a vertebral compression fracture. RADIATION DOSE DELIVERED: Total DLP
== END 2021-08-13 01:26 ==
PROVIDERS: PCP Nurse Practitioner Family; Visit Provider Nurse Practitioner Family
DX: M81.0 Age-related osteoporosis without current pathological fracture (principal); M85.88 Other specified disorders of bone density and structure, other site; Z12.31 Encounter for screening mammogram for malignant neoplasm of breast
CPT/HCPCS: 77063; 77067; 77080

== ENCOUNTER 2021-10-20 02:28 | Outpatient (CLI) | payer OTHER, MEDICARE, SELFPAY ==
[2021-10-20 11:45] LABS: Anion Gap 7.1 mmol/L (3-11); BUN 15 mg/dL (7-18); CO2 29.9 mmol/L (21.0-32.0); CREATININE 0.8 mg/dL (0.55-1.02); Calcium 9.1 mg/dL (8.5-10.1); Chloride 102 mmol/L (98-107); FREE T4 1.33 ng/dL (0.76-1.46); Glucose 99 mg/dL (74-106); Potassium 4.7 mmol/L (3.5-5.1); Sodium 139 mmol/L (136-145); TSH 2.79 uIU/mL (0.36-3.74)
== END 2021-10-20 02:29 | disposition home or self-care (01) ==
LOC: LBO 02:29
PROVIDERS: PCP Nurse Practitioner Family; Visit Provider Nurse Practitioner Family
DX: E03.9 Hypothyroidism, unspecified (principal)
CPT/HCPCS: 36415; 80048; 84439; 84443

== ENCOUNTER 2022-02-08 09:12 | Outpatient (CLI) | payer OTHER, MEDICARE, SELFPAY ==
--- NOTE | 2022-02-08 08:30 | DI.RAD_ITS ---
Exam(s) XR KNEE RT 2V AP,LAT EXAM: XR KNEE RT 2V AP,LAT INDICATION: 1 year follow up. COMPARISON: CR XR KNEE RT 1V from 02/19/2021 TECHNIQUE: 2D digital imaging was performed. Two views. FINDINGS: There has been no change in the total knee prosthesis or appearance of surrounding. New abnormalitie s. DATA REPOSITORY: RADIATION DOSE DELIVERED:
== END 2022-02-08 09:13 | disposition home or self-care (01) ==
LOC: DIORS 09:13
PROVIDERS: PCP Nurse Practitioner Family; Referring Provider Nurse Practitioner Family; Visit Provider Physician Assistant Surgical
DX: Z96.651 Presence of right artificial knee joint (principal); Z47.1 Aftercare following joint replacement surgery
CPT/HCPCS: 73560

== ENCOUNTER 2022-03-26 02:21 | Outpatient (CLI) | payer OTHER, MEDICARE, SELFPAY ==
[2022-03-26 07:45] LABS: HCT 46.4 % (36.0-46.0); HGB 15.5 g/dL (11.2-15.7); MCH 30.1 pg (27.0-33.0); MCHC 33.4 % (32.0-36.0); MCV 90 fL (80-95); MPV 11.7 fL (8.0-11.0); Platelet Count 246 10^3/uL (130-400); RBC 5.15 10^6/uL (3.93-5.22); RDW-SD 42.5 fL; WBC 9.32 10^3/uL (4.4-10.8)
[2022-03-26 08:51] LABS: ALT 58 U/L (14-59); AST 37 U/L (15-37); Albumin 3.2 g/dL (3.4-5.0); Alkaline Phosphatase 72 U/L (46-116); Anion Gap 3.6 mmol/L (3-11); BUN 15 mg/dL (7-18); Bilirubin, Total 0.4 mg/dL (0.2-1.0); CO2 32.4 mmol/L (21.0-32.0); CREATININE 0.8 mg/dL (0.55-1.02); Calcium 8.6 mg/dL (8.5-10.1); Calculated LDL 114 mg/dL (<100); Chloride 105 mmol/L (98-107); Cholesterol 174 mg/dL (<200); Glucose 101 mg/dL (74-106); HDL Cholesterol 42 mg/dL (40-60); Potassium 4.9 mmol/L (3.5-5.1); Sodium 141 mmol/L (136-145); TSH (W/Ref FT4) 2.63 uIU/mL (0.36-3.74); Total Protein 7.5 g/dL (6.4-8.2); Triglyceride 94 mg/dL (<150); Vitamin B12 499 pg/mL (193-986)
== END 2022-03-26 02:22 | disposition home or self-care (01) ==
PROVIDERS: PCP Nurse Practitioner Family; Visit Provider Family Medicine
DX: E03.9 Hypothyroidism, unspecified (principal); E78.5 Hyperlipidemia, unspecified; R74.8 Abnormal levels of other serum enzymes; R68.89 Other general symptoms and signs
CPT/HCPCS: 36415; 80053; 80061; 85027; 82607; 84443

== ENCOUNTER 2023-01-29 00:09 | Emergency (ER) | payer OTHER, MEDICARE, SELFPAY ==
[2023-01-29] VITALS (43 sets, daily range): BP systolic 102–188; BP diastolic 50–147; PULSE 77–112; RESP 13–29; TEMP 36.5; O2SAT 88–98
--- NOTE | 2023-01-29 | RT.EKG_ITS ---
APPROVED REPORT Exam: Resting ECG Reason for Exam: chest pain Patient Location: E HR:92 bpm ECG Measurements Heart Rate 92 AXIS WY 164 P 71 QRSd 83 QRS 42 QT 359 T 44 QTc 445 Conclusion Sinus rhythm...normal P axis, V-rate 60- 99. Sinus. Normal axis. No STEMI. I have reviewed and interpreted ECG and agree with software generated interpretation.
--- NOTE | 2023-01-29 00:20 | ED.GENADUL_ITS ---
Discharge Plan Disposition Patient Disposition: Home Condition: Improving Discharge Details Clinical Impression: Mediastinal lymphadenopathy, Postprandial epigastric pain Primary Care Provider: Maryellen Painter ED Provider: Libby Fregoso Home Meds and New Rx's Prescriptions: New sucralfate [Carafate] 1 gram tablet 1 gm PO QACHS Qty: 14 0RF Continued calcium carbonate-vitamin D3 [Calcium 600 with Vitamin D3] 600 mg(1,500mg) - 500 unit capsule 1 cap PO DAILY acetaminophen [Tylenol Extra Strength] 500 mg tablet 500 mg PO Q6H PRN (Reason: pain) Qty: 90 0RF levothyroxine [Synthroid] 125 mcg tablet 125 mcg PO DAILY Qty: 90 4RF Discharge Instructions Instructions: Diet for Stomach Ulcers and Gastritis (ED), GERD (Gastroesophageal Reflux Disease) (ED), Abdominal Pain (ED), Lymph Node Biopsy (DC) Additional Instructions: Your CT scan noted that you have a 2 cm calcified lymph node near the lower end of your esophagus which may be causing your pain when eating. It has been recommended to start taking an [id number] Prilosec once daily for 2 weeks. A prescription for Carafate for your abdominal pain has also been sent electronically to your pharmacy to take as directed. Your blood tests today noted that you have chronic elevation of your liver enzymes and your CT scan also noted that you have a fatty liver. It is recommended to follow-up with your primary care doctor for recheck of your liver enzymes. An order has been placed for an outpatient gallbladder ultrasound to rule out gallstones or gallbladder infection as a possible cause of your pain. You will be contacted by the radiology department for scheduling of this test. You have been placed on the virtualization architect Dr. Knight's list for follow-up evaluation regarding the lymph node noted within your chest cavity. Return immediately to the emergency department if you develop any worsening or new concerning symptoms. Referrals: Mary Ann Brown MD [ [facility] STAFF PHYSICIAN] - Discharge Data Discharge Date/Time-TO BE ENTERED AT DEPARTURE: 01/29/23 04:41 Discharge Physician: Libby Fregoso Medical Decision Making 0020 -- 72-year-old female with a history of morbid obesity, hypothyroidism, hyperlipidemia, depression with nausea and aching epigastric pain radiating to her left upper and right upper quadrants that started after eating 4 hours ago. EKG notes a rate of 92, sinus, normal axis, normal intervals, no STEMI and nondiagnostic. Patient's blood pressure is moderately hypertensive, she states it is usually within normal limits. Patient is morbidly obese. Her abdomen is soft but tender in the epigastrium, left and right upper quadrants. Patient denies any chest pain, shortness of breath or dizziness and she denies any chest pain, tearing or ripping sensation to suggest ACS or dissection. Differential diagnosis includes PUD, GERD, cholelithiasis, cholecystitis, pancreatitis. Considering her age and history, will obtain screening labs including troponin, lipase, CT chest abdomen pelvis and will give IV Pepcid, IV Zofran, GI cocktail and Carafate and reassess. 0056 --patient noted to have an approximate 10-second episode of nonsustained V. tach. Heart rate appeared as high as 220. Blood pressure remained hypertensive and actually improved from arrival, now 154/76. Patient assessed as soon as thi s was noted on the monitor and she was sitting comfortably and denied any complaints of chest pain, shortness of breath, dizziness or nausea. She had just taken the Carafate and GI cocktail and received the IV Zofran and Pepcid. We will continue to monitor but as this appears to be an asymptomatic episode of V. tach lasting under 30 seconds, may not indicate any further intervention at this time. We will continue to monitor. 0210 -- Pt states her pain and nausea had been improving but now improving. Will give a dose of dilaudid and reglan IV and reassess. 0330 --repeat EKG unchanged. Repeat troponin negative. CT chest notes: IMPRESSION: Densely calcified lymph node measuring up to 2 cm compresses anterior border of distal esophagus and could be a source of patient pain, especially when eating. Correlate clinically CT abdomen/pelvis notes: IMPRESSION: 1. ? No CT findings for acute cholecystitis. 2. ? Pancreas appears normal at CT. Normal appearance does not exclude the presence of acute pancreatitis. Correlate clinically and with appropriate laboratory studies. Patient reassessed and she feels much better. She has remained hemodynamically stable and denies any acute complaints of chest pain, shortness of breath, dizziness and states overall her epigastric pain is much improved. Case discussed with Dr. Thompson who recommends follow-up with Dr. Knight as this involves the chest cavity and may require bronchoscopy or biopsy or referral to [facility] cardiothoracic service and further evaluation. Agrees with plan for Prilosec and Carafate for now. An order for an outpatient gallbladder ultrasound has been placed. Patient feels comfortable going home. She had requested a dose of pain medicine to go and was given 1 tab of oxycodone. Patient placed on Dr. Knight's follow-up list. Usual and customary return precautions given prior to discharge. Medical Records Medical records reviewed: Yes I reviewed the patient's medical records. Imaging Data Radiologic Study: Radiologist's impression: CT Chest With Contrast; Diagnostic Exam date and time: 01/29/2023 1:22 AM Age: 72 years old Clinical indication: Abdominal pain; Localized; Upper; Other: Epigastric pain, R/O cholecystitis, pancreatitis TECHNIQUE: Imaging protocol: Diagnostic computed tomography of the chest with contrast. 3D rendering (Not supervised by radiologist): MIP and/or 3D reconstructed images were created by the technologist. Radiation optimization: All CT scans at this facility use at least one of these dose optimization techniques: automated exposure control; mA and/or kV adjustment per patient size (includes targeted exams where dose is matched to clinical indication); or iterative reconstruction. Contrast material: OMNI 350; Contrast volume: 100 ml; Contrast route: INTRAVENOUS (IV);? COMPARISON: No relevant prior studies available. FINDINGS: Lungs: Small calcified granulomas are demonstrated in each lung. Pleural spaces: Unremarkable. No pneumothorax. No pleural effusion. Heart: Heart normal in size. No pericardial effusion. Coronary arteries: No coronary artery calcifications. Lymph nodes: There are calcified mediastinal nodes consistent with remote granulomatous disease. The largest is present inferiorly in mediastinum along anterior border of esophagus and measures up to 2 cm. It compresses the distal esophagus with finding best demonstrated on the sagittal sequence. No adenopathy. Vasculature: No aortic aneurysm or dissection. Bones/joints: The spine demonstrates moderate degenerative changes at multiple levels. Soft tissues: Unremarkable. IMPRESSION: Densely calcified lymph node measuring up to 2 cm compresses anterior border of distal esophagus and could be a source of patient pain, especially when eating. Correlate clinically CT Abdomen And Pelvis With Contrast Exam date and time: 01/29/2023 1:22 AM Age: 72 years old Clinical indication: Abdominal pain; Localized; Upper; Other: Epigastric pain, R/O cholecystitis, pancreatitis TECHNIQUE: Imaging protocol: Computed tomography of the abdomen and pelvis with contrast. 3D rendering (Not supervised by radiologist): MIP and/or 3D reconstructed images were created by the technologist. Radiation optimization: All CT scans at this facility use at least one of these dose optimization techniques: automated exposure control; mA and/or kV adjustment per patient size (includes targeted exams where dose is matched to clinical indication); or iterative reconstruction. Contrast material: OMNI 350; Contrast volume: 100 ml; Contrast route: INTRAVENOUS (IV);? COMPARISON: US PELVIC ULTRASOUND 03/30/2016 5:40 PM FINDINGS: Liver: There is diffuse decrease in hepatic parenchymal density, consistent with mild fatty infiltration. No mass. Gallbladder and bile ducts: No calcified gallstones, gallbladder wall thickening or biliary ductal dilatation identified. Pancreas: Fatty infiltration of the pancreas. No ductal dilatation peripancreatic fat stranding or collections about the gland. Spleen: Normal. No splenomegaly. Adrenal glands: Normal. No mass. Kidneys and ureters: Homogeneous enhancement of renal parenchyma. No radiopaque renal or ureteric calculi identified. No hydronephrosis. Stomach and bowel: Unremarkable. No obstruction. No mucosal thickening. Appendix: Normal appendix. Intraperitoneal space: Unremarkable. No free air. No significant fluid collection. Vasculature: Unremarkable. No abdominal aortic aneurysm. Lymph nodes: Unremarkable. No enlarged lymph nodes. Urinary bladder: Unremarkable as visualized. Reproductive: Unremarkable as visualized. Bones/joints: Unremarkable. No acute fracture. Soft tissues: Unremarkable. IMPRESSION: 1. ? No CT findings for acute cholecystitis. 2. ? Pancreas appears normal at CT. Normal appearance does not exclude the presence of acute pancreatitis. Correlate clinically and with appropriate laboratory studies. Lab Data Lab results reviewed: Yes I reviewed the patient's lab results. Labs: Laboratory Tests Range/Units 01/29/23 01/29/23 01/29/23 00:20 00:20 02:50 WBC (4.4-10.8) 10^3/uL 12.55 H RBC (3.93-5.22) 10^6/uL 5.65 H Hgb (11.2-15.7) g/dL 17.0 H Hct (36.0-46.0) % 51.8 H MCV (80-95) fL 92 MCH (27.0-33.0) pg 30.1 MCHC (32.0-36.0) % 32.8 RDW (11.7-14.6) % 12.9 Plt Count (130-400) 10^3/uL 276 MPV (8.0-11.0) fL 11.9 H Immature Gran % 0.2 Neutrophils % 55.0 Lymphocytes % 34.3 Monocytes % 8.2 Eosinophils % 1.7 Basophils % 0.6 Nucleated RBC % (0.0-0.3) % 0.0 Absolute Neutrophils (1.2-6.7) 10^3/uL 6.90 H Absolute Lymphocytes (1.2-3.4) 10^3/uL 4.30 H Absolute Monocytes (0.1-0.8) 10^3/uL 1.03 H Absolute Eosinophils (0.0-0.7) 10^3/uL 0.21 Absolute Basophils (0.0-0.2) 10^3/uL 0.08 Sodium (136-145) mmol/L 133 L Potassium (3.5-5.1) mmol/L 3.8 Chloride (98-107) mmol/L 100 Carbon Dioxide (21.0-32.0) mmol/L 31.2 Anion Gap (3-11) mmol/L 1.8 L BUN (7-18) mg/dL 16 Creatinine (0.55-1.02) mg/dL 0.9 Est GFR (CKD-EPI 2020) (mL/min/1.73m2) 68.35 Glucose (74-106) mg/dL 112 H Calcium (8.5-10.1) mg/dL 9.2 Magnesium (1.8-2.4) mg/dL 1.9 Total Bilirubin (0.2-1.0) mg/dL 0.3 AST (15-37) U/L 58 H ALT (14-59) U/L 100 H Alkaline Phosphatase (46-116) U/L 91 Troponin I (<or=60) ng/L < 50 < 50 Total Protein (6.4-8.2) g/dL 8.6 H Albumin (3.4-5.0) g/dL 3.6 Lipase (16-77) U/L 36 ECG Data Attestation: I personally reviewed and interpreted this ECG (s) as follows: Interpretation: #1 -- Rate of 92, sinus, normal axis, normal intervals, no STEMI. #2 -- Rate of 101, sinus, normal axis. normal intervals, no STEMI. HPI General Mode of arrival: ambulatory . Date/Time Provider Initiated Documentation: 01/29/23 00:10 . Limitations to Documentation: no limitations . Information obtained by: patient . HPI Narrative: Patient is a 72-year-old female with a history of morbid obesity, hypothyroidism, hyperlipidemia, depression who presents from home with aching epigastric pain for the past 4 hours. Patient states the pain was intermittent but now is more constant. She states the pain started after eating big chicken and a baked potato and a glass of white wine. She states the pain started in the epigastrium and radiated to her left upper quadrant and right upper quadrant. She denies any radiation of pain to her back or chest. She admits to nausea but denies any vomiting, chest pain, difficulty breathing, urinary symptoms or diarrhea. She states she thought her symptoms were secondary to gas so she drank 7-Up without relief. She states the pain is currently 6/10. She states she felt fine earlier in the day and denies any recent illness. She states she rarely drinks alcohol and does not regularly take NSAIDs. She denies any new medications. She states her last bowel movement was this morning and within normal limits. Related Data Home Medications Medication Instructions Recorded Confirmed calcium carbonate 600 mg-vitamin 1 cap PO DAILY 11/06/20 01/29/23 D3 12.5 mcg (500 unit) capsule (Calcium 600 with Vitamin D3) acetaminophen 500 mg tablet 500 mg PO Q6H PRN pain #90 tabs 03/03/21 01/29/23 (Tylenol Extra Strength) Synthroid 125 mcg tablet 125 mcg PO DAILY #90 tabs 05/03/22 01/29/23 (levothyroxine) sucralfate 1 gram tablet (Carafate) 1 gm PO QACHS #14 tabs 01/29/23 Previous Rx's Medication Instructions Recorded acetaminophen 500 mg tablet 500 mg PO Q6H PRN pain #90 tabs 03/03/21 (Tylenol Extra Strength) Synthroid 125 mcg tablet 125 mcg PO DAILY #90 tabs 05/03/22 (levothyroxine) sucralfate 1 gram tablet (Carafate) 1 gm PO QACHS #14 tabs 01/29/23 Allergies Allergy/AdvReac Type Severity Reaction Status Date / Time epinephrine AdvReac Unknown Increased Verified 01/29/23 07:07 heart rate General Stated Complaint: Epigastric Pain/Over45 KAMALJIT: 3 Review of Systems All systems reviewed & are unremarkable except as noted in HPI and below Constitutional Constitutional: Reports as per HPI, Denies chills and Denies fever(s) Eyes Eyes: Denies blurry vision ENT Ears, Nose, Mouth, and Throat: Denies dizziness, Denies sore throat and Denies throat swelling Cardiovascular Cardiovascular: Denies chest pain and Denies dyspnea Respiratory Respiratory: Denies cough and Denies dyspnea Gastrointestinal Gastrointestinal: Reports abdominal pain, Denies diarrhea, Reports nausea and Denies vomiting Genitourinary Genitourinary: Denies hematuria and Denies dysuria Musculoskeletal Musculoskeletal: Denies back pain and Denies numbness Integumentary/Breasts Skin/Breast: Denies lesions and Denies rash Neurologic Neurologic: Denies dizziness, Denies localized weakness and Denies numbness Allergic/Immunologic Allergic/Immunologic: Denies throat swelling PFSH All Active Problems (Updated 01/29/23 @ 03:53 by Libby Fregoso DO) Mediastinal lymphadenopathy (Acute) Postprandial epigastric pain (Acute) Elevated liver enzymes (Acute) 2020-mildly elevated liver function test, suspect fatty liver syndrome Hypothyroidism (Chronic) Hyperlipidemia (Chronic) Depressive disorder (Chronic) Osteoporosis (Chronic) of forearm on DEXA 2020 Obesity (Chronic) Osteoarthritis of left knee (Acute) Vitamin D deficiency (Chronic) Rosacea (Chronic) Medical History (Updated 01/29/23 @ 03:53 by Libby Fregoso DO) Endometrial hyperplasia without atypia Postmenopausal bleeding Surgical History (Updated 09/04/21 @ 08:47 by Maryellen Painter NP) H/O dilation and curettage (~04/2016) With endometrial polypectomy for postmenopausal vaginal bleeding History of total right knee replacement (02/03/21) S/P right knee arthroscopy (05/01/13) S/P tonsillectomy and adenoidectomy Family History Mother , 83 Renal cancer Depression Heart disease Father , 86 Heart disease Son Alcohol abuse Depression COPD (chronic obstructive pulmonary disease) Paternal Grandfather No problems noted. Paternal Grandmother Diabetes Kidney disease Maternal Grandfather No problems noted. Maternal Grandmother Depression Social History (Updated 03/16/22 @ 09:01 by Mandy Crandall) Smoking/Tobacco Use Status: Never Second Hand Exposure: Yes Smoking risk assessment performed?: Yes Alcohol Intake: current Alcohol Intake frequency: a few times a month Alcohol type: wine and hard liquor Drug use: Never Substance use type: does not use Caregiver/Support person: No Household members: spouse Housing: house Communication Needs: None Do you need help understanding health information?: Never Pets and animals: Yes Pets and animals: cat(s) Sexually active: Yes Do you think of yourself as: lesbian/ortiz/homosexual Current gender identity: female What is your relationship status?: How often do you talk on the phone with friends or family?: once per week How often do you get together with friends or relatives?: once per week How often do you attend synagogue or anabaptism services?: 4 or more times per year Do you belong to any clubs or organized social groups?: no Panel score (0-1 are the most socially isolated patients): 2 What type of physical activity do you participate in: swimming Duration: < 15 minutes/day Frequency: 1-2 times per week Inna/Bahai: Gnosticist Special inna needs: No Seatbelt use: always Helmet use: Yes Helmet use: always Drive intox or ride w/intox cdl driver: No Do you feel safe at home: Yes Do you feel safe in your relationship?: Yes History History 2 Para 1 Hx # Term Pregnancies Multiple births Hx # Pregnancies Ectopic pregnancies AB induced Hx Number of Living Children 1 AB spontaneous 2 Exam Const General: cooperative and no acute distress Orientation: alert, awake and oriented x3 HENMT Head: normal to inspection Face and sinus: normal facial exam Eyes General: appearance normal, both eyes and all related structures Pupils: PERRL EOM: EOM intact bilaterally Neck Neck: normal visual inspection and No submandibular swelling Lymphatic: no lymphadenopathy noted Chest Chest: normal inspection of the chest and no tenderness Resp Effort & Inspection: normal respiratory effort and able to speak in complete sentences Auscultation: clear to auscultation bilaterally Cardio Rate: regular rate Rhythm: regular rhythm GI Inspection: normal to inspection Palpation: soft, not firm, not rigid and tender in the epigastrum, in the LUQ and in the RUQ Auscultation: hypoactive bowel sounds Back/Spine/Pelvis Thoracic/Lumbar Spine: thoracic and lumbar spine normal to inspection Skin General skin exam: no rashes or lesions noted Neuro General: patient alert, patient awake and patient oriented x3 Cognition: normal cognition Speech: speech normal Motor: muscle tone normal throughout Sensory Exam: no sensory deficits noted Extrem General: normal to inspection, full ROM, no calf tenderness bilaterally and no edema Psych Appearance: grossly normal Mental Status: mental status grossly normal Speech and Movement: speech and movement normal Affect: normal affect Course Vital Signs Vital signs: Vital Signs Temperature 97.7 F 01/29/23 00:14 Pulse 94 H 01/29/23 00:14 Respiratory Rate 18 01/29/23 00:14 Blood Pressure 188/75 H 01/29/23 00:14 Pulse Oximetry 97 01/29/23 00:14 Temperature 97.7 F 01/29/23 00:14 Temperature Source Skin 01/29/23 00:14 Pulse 94 H 01/29/23 00:14 Respiratory Rate 18 01/29/23 00:14 Respiratory Effort Normal 01/29/23 00:17 Blood Pressure 188/75 H 01/29/23 00:14 Blood Pressure Position Supine 01/29/23 00:14 Pulse Oximetry 97 01/29/23 00:14 Oxygen Delivery Method Room Air 01/29/23 00:14 Oxygen Flow Rate 0 01/29/23 00:14 Pain Level 6 01/29/23 00:14
[2023-01-29 00:27] LABS: Abs Immature Grans 0.03 10^3/uL (0.0-0.06); Absolute Basophil Count 0.08 10^3/uL (0.0-0.2); Absolute Eosinophil Count 0.21 10^3/uL (0.0-0.7); Absolute Monocyte Count 1.03 10^3/uL (0.1-0.8); Basophils % 0.6; Eosinophils % 1.7; HCT 51.8 % (36.0-46.0); Immature Grans % 0.2; Lymphocytes % 34.3; MCH 30.1 pg (27.0-33.0); MCHC 32.8 % (32.0-36.0); MCV 92 fL (80-95); MPV 11.9 fL (8.0-11.0); Monocytes % 8.2; Platelet Count 276 10^3/uL (130-400); RBC 5.65 10^6/uL (3.93-5.22); RDW 12.9 % (11.7-14.6); RDW-SD 43.8 fL; WBC 12.55 10^3/uL (4.4-10.8)
--- NOTE | 2023-01-29 00:30 | DI.CT_ITS ---
Exam(s) CT CHEST/ABD/PEL W EXAM: CT CHEST/ABD/PEL W CLINICAL HISTORY: epigastric pain, r/o cholecystitis, pancreatitis TECHNIQUE: Imaging Protocol: Axial computed tomography images with coronal and sagittal reformatted images were created and reviewed CONTRAST MATERIAL: Intravenous: Omnipaque 350 contrast volume:100 mL Oral: No COMPARISON: No exams were available for comparison FINDINGS: CHEST: Tracheobronchial tree: Patent where visualized. Pulmonary parenchyma: No consolidation or dominant measurable mass. There are calcified granuloma pre sent. Visualized thyroid gland: Unremarkable. Mediastinum and Thi: No dominant adenopathy or fluid collection. The esophagus is unremarkable. The re are calcified lymph nodes seen in the mediastinum consistent with prior granulomatous disease. Th ere is a 2 cm calcification anterior to the distal esophagus. It does appear to compress the anterio r esophagus in this region. Pleura: No effusion or pneumothorax. Heart: The heart is not dilated. Mild coronary artery calcifications are present. No pericardial eff usion. Pulmonary arteries: Due to the bolus timing, segmental and subsegmental pulmonary artery opacificatio n is suboptimal for evaluation of pulmonary emboli. No large central pulmonary embolus is present. Aorta: Thoracic aorta non-dilated. Lymph nodes: Within normal limits. Soft tissues: Unremarkable. Bones:Within normal limits for the patient's age. ABDOMEN: Liver: There is decreased attenuation of the liver suggesting fatty infiltration. No measurable mass . Portal, Superior Mesenteric, and Splenic Veins: Unremarkable. Gallbladder and Biliary Tract: No radiodense calculus or dilation. Pancreas: Normal density, no abnormal calcifications or inflammatory process. There is mild fatty rep lacement of the pancreas. Spleen: Normal. Adrenals: No masses seen. Kidneys: Normal size, contour and axis. No radiodense stones or obstructive uropathy. No masses seen. Abdominal Aorta: Abdominal portion non-dilated. Mild atherosclerosis. Bowel: No obstruction or bowel wall thickening. Appendix is unremarkable. There is a duodenal diverti culum adjacent to the pancreatic head. Peritoneal Cavity: No ascites, collection or mesenteric inflammatory response. No free air. Lymph Nodes: Within normal limits. Bones: Within normal limits for the patient's age. Soft Tissues: Unremarkable. PELVIS: Bladder: Symmetric distention, no gross wall thickening. Reproductive Organs: Unremarkable as visualized. Lymph Nodes: Within normal limits. Bones: Within normal limits. IMPRESSION: 1. Unremarkable CT scan of the abdomen and pelvis. 2. No acute pulmonary process. 3. 2 cm calcification anterior to the distal esophagus which may compress the esophagus in this regio n. Please correlate clinically. RADIATION DOSE DELIVERED: 2,009.31mGy.cm Total DLP DATA REPOSITORY: All CT scans at this facility are submitted to the National Radiology Data Registry (NRDR) Dose Index Registry (DIR) with the [employer] ([employer]). RADIATION OPTIMIZATION: All CT scans at this facility use at least one of these dose optimization te chniques: automated exposure control; mA and/or kV adjustment per patient size (includes targeted exa ms where dose is matched to clinical indication); or iterative reconstruction.
[2023-01-29] MEDS: Normal Saline 250 ML 500 ML IV (00:50)
[2023-01-29] MEDS: Famotidine 20 MG/2 ML VIAL IVP (00:51)
[2023-01-29] MEDS: Ondansetron 4 MG/2 ML VIAL IVP (00:51)
[2023-01-29] MEDS: Sucralfate 1 GM TAB PO (00:51)
[2023-01-29 00:52] LABS: ALT 100 U/L (14-59); AST 58 U/L (15-37); Albumin 3.6 g/dL (3.4-5.0); Alkaline Phosphatase 91 U/L (46-116); BUN 16 mg/dL (7-18); Bilirubin, Total 0.3 mg/dL (0.2-1.0); CO2 31.2 mmol/L (21.0-32.0); CREATININE 0.9 mg/dL (0.55-1.02); Calcium 9.2 mg/dL (8.5-10.1); Estimated GFR 68.35 (mL/min/1.73m2); Glucose 112 mg/dL (74-106); Lipase 36 U/L (16-77); Magnesium 1.9 mg/dL (1.8-2.4); Total Protein 8.6 g/dL (6.4-8.2); Troponin I < 50 ng/L (<or=60)
[2023-01-29 00:57] LABS: Anion Gap 1.8 mmol/L (3-11); Chloride 100 mmol/L (98-107); Potassium 3.8 mmol/L (3.5-5.1); Sodium 133 mmol/L (136-145)
[2023-01-29] MEDS: Omnipaque 350 MG/ML 100 ML BTL IJ (01:21)
[2023-01-29] MEDS: Normal Saline - Diluent 50 ML VIAL IJ (01:23)
--- NOTE | 2023-01-29 02:15 | RT.EKG_ITS ---
APPROVED REPORT Exam: Resting ECG Reason for Exam: epigastric pain Patient Location: E HR:101 bpm ECG Measurements Heart Rate 101 AXIS MO 177 P 57 QRSd 84 QRS 20 QT 349 T 26 QTc 452 Conclusion Sinus tachycardia...rate> 99. Sinus. Normal axis. No STEMI. I have reviewed and interpreted ECG and agree with software generated interpretation.
[2023-01-29] MEDS: HYDROmorphone 2 MG/ML SYR 0.5 MG IVP (02:30)
--- NOTE | 2023-01-29 02:30 | DI.VRAD_ITS ---
PROCEDURE INFORMATION: Exam: CT Chest With Contrast; Diagnostic Exam date and time: 01/29/2023 1:22 AM Age: 72 years old Clinical indication: Abdominal pain; Localized; Upper; Other: Epigastric pain, R/O cholecystitis, pancreatitis TECHNIQUE: Imaging protocol: Diagnostic computed tomography of the chest with contrast. 3D rendering (Not supervised by radiologist): MIP and/or 3D reconstructed images were created by the technologist. Radiation optimization: All CT scans at this facility use at least one of these dose optimization techniques: automated exposure control; mA and/or kV adjustment per patient size (includes targeted exams where dose is matched to clinical indication); or iterative reconstruction. Contrast material: OMNI 350; Contrast volume: 100 ml; Contrast route: INTRAVENOUS (IV); COMPARISON: No relevant prior studies available. FINDINGS: Lungs: Small calcified granulomas are demonstrated in each lung. Pleural spaces: Unremarkable. No pneumothorax. No pleural effusion. Heart: Heart normal in size. No pericardial effusion. Coronary arteries: No coronary artery calcifications. Lymph nodes: There are calcified mediastinal nodes consistent with remote granulomatous disease. The largest is present inferiorly in mediastinum along anterior border of esophagus and measures up to 2 cm. It compresses the distal esophagus with finding best demonstrated on the sagittal sequence. No adenopathy. Vasculature: No aortic aneurysm or dissection. Bones/joints: The spine demonstrates moderate degenerative changes at multiple levels. Soft tissues: Unremarkable. IMPRESSION: Densely calcified lymph node measuring up to 2 cm compresses anterior border of distal esophagus and could be a source of patient pain, especially when eating. Correlate clinically PROCEDURE INFORMATION: Exam: CT Abdomen And Pelvis With Contrast Exam date and time: 01/29/2023 1:22 AM Age: 72 years old Clinical indication: Abdominal pain; Localized; Upper; Other: Epigastric pain, R/O cholecystitis, pancreatitis TECHNIQUE: Imaging protocol: Computed tomography of the abdomen and pelvis with contrast. 3D rendering (Not supervised by radiologist): MIP and/or 3D reconstructed images were created by the technologist. Radiation optimization: All CT scans at this facility use at least one of these dose optimization techniques: automated exposure control; mA and/or kV adjustment per patient size (includes targeted exams where dose is matched to clinical indication); or iterative reconstruction. Contrast material: OMNI 350; Contrast volume: 100 ml; Contrast route: INTRAVENOUS (IV); COMPARISON: US PELVIC ULTRASOUND 03/30/2016 5:40 PM FINDINGS: Liver: There is diffuse decrease in hepatic parenchymal density, consistent with mild fatty infiltration. No mass. Gallbladder and bile ducts: No calcified gallstones, gallbladder wall thickening or biliary ductal dilatation identified. Pancreas: Fatty infiltration of the pancreas. No ductal dilatation peripancreatic fat stranding or collections about the gland. Spleen: Normal. No splenomegaly. Adrenal glands: Normal. No mass. Kidneys and ureters: Homogeneous enhancement of renal parenchyma. No radiopaque renal or ureteric calculi identified. No hydronephrosis. Stomach and bowel: Unremarkable. No obstruction. No mucosal thickening. Appendix: Normal appendix. Intraperitoneal space: Unremarkable. No free air. No significant fluid collection. Vasculature: Unremarkable. No abdominal aortic aneurysm. Lymph nodes: Unremarkable. No enlarged lymph nodes. Urinary bladder: Unremarkable as visualized. Reproductive: Unremarkable as visualized. Bones/joints: Unremarkable. No acute fracture. Soft tissues: Unremarkable. IMPRESSION: 1. No CT findings for acute cholecystitis. 2. Pancreas appears normal at CT. Normal appearance does not exclude the presence of acute pancreatitis. Correlate clinically and with appropriate laboratory studies. Dictated and Authenticated by: Bam Driscoll MD. Ordering:REJI Souza MD
[2023-01-29] MEDS: Metoclopramide 10 MG/2 ML VIAL IVP (02:33)
[2023-01-29 03:19] LABS: Troponin I < 50 ng/L (<or=60)
--- NOTE | 2023-01-29 04:14 | NUR.NOTE ---
Pt referral sent to Dr. [facility] for medial stinal lynphnode epigastric
[2023-01-29] MEDS: oxyCODONE 5 MG TAB PO (04:26)
--- NOTE | 2023-01-31 11:07 | NUR.NOTE ---
Nursing Note: Referral faxed to DI for gallbladder US for pain, possible gallbladder infection/ to be done Thurs per [facility] Valdovinos; follow up ED
== END 2023-01-29 04:41 | disposition home or self-care (01) ==
PROVIDERS: Emergency Provider Physician Assistant; PCP Nurse Practitioner Family
DX: R10.13 Epigastric pain (principal); R59.0 Localized enlarged lymph nodes; E03.9 Hypothyroidism, unspecified; R10.11 Right upper quadrant pain; R10.12 Left upper quadrant pain; R10.816 Epigastric abdominal tenderness; R10.811 Right upper quadrant abdominal tenderness; R10.812 Left upper quadrant abdominal tenderness; R11.0 Nausea; I10 Essential (primary) hypertension
CPT/HCPCS: 74177; 80053; 83690; 93005; 96374; 96375; 99285; 71260; 83735; 84484; 85025; 93010; 99284; J1170; J2405; J2765; J3490

== ENCOUNTER 2023-02-14 08:24 | Outpatient (CLI) | payer OTHER, MEDICARE, SELFPAY | END 2023-02-14 08:25 | disposition home or self-care (01) | PROVIDERS: PCP Nurse Practitioner Family; Visit Provider Nurse Practitioner Family | DX: I47.29 Other ventricular tachycardia (principal) | CPT/HCPCS: 93246 ==

== ENCOUNTER 2023-03-02 18:33 | Emergency (ER) | payer OTHER, MEDICARE, SELFPAY ==
--- NOTE | 2023-03-02 18:30 | RT.EKG_ITS ---
APPROVED REPORT Exam: Resting ECG Reason for Exam: TACHYCARDIA Patient Location: E HR:150 bpm ECG Measurements Heart Rate 150 AXIS SD [id number] P [id number] QRSd 80 QRS 70 QT 292 T 20 QTc 462 Conclusion Supraventricular tachycardia...V-rate>(220-age), QRSd<120
--- NOTE | 2023-03-02 18:54 | W.ED.GENAD ---
Discharge Plan Disposition Patient Disposition: Home Condition: Stable Discharge Details Clinical Impression: SVT (supraventricular tachycardia) Primary Care Provider: Maryellen Painter ED Provider: Jose R Soliz Home Meds and New Rx's Prescriptions: New metoprolol succinate 25 mg tablet extended release 24 hr 25 mg PO DAILY Qty: 14 0RF Continued calcium carbonate-vitamin D3 [Calcium 600 with Vitamin D3] 600 mg(1,500mg) -500 unit capsule 1 cap PO DAILY omeprazole 20 mg capsule,delayed release(DR/EC) 20 mg PO DAILY acetaminophen [Tylenol Extra Strength] 500 mg tablet 500 mg PO Q6H PRN (Reason: pain) Qty: 90 0RF levothyroxine [Synthroid] 125 mcg tablet 125 mcg PO DAILY Qty: 90 4RF sucralfate [Carafate] 1 gram tablet 1 gm PO QACHS Qty: 14 0RF Discharge Instructions Instructions: Supraventricular Tachycardia (ED) Additional Instructions: Follow up with your primary care provider within 1 week and discuss seeing cardiology if you feel more ill, have severe chest pain or difficulty breathing return to the emergency department Medical Decision Making 72 yo female with hx of hld, hypothyroidism, who comes in with feeling her heart fluttering since around 4pm today. Denies severe chest pressure/pain, dyspnea, fevers, chills. She arrives tachycardic to the 15-160 and apepars to be in svt, it is narrow and regular, could also be aflutter with 2:1 conduction. BP stable, no hypoxia, clear lungs and she is in no distress. Will proceed with ekg/troponin, cbc, cmp, and administer 6mg adenosine pt converted to normal sinus rhythm, rate of 90 after 6mg iv adenosine, labs pending labs without significant acute abnormalities, patient stable in sinus. Given lack of ischemic chest pain do not feel delta troponin indicated. Will start her on metoprolol and have her f/u with her pcp, return precautions given Differential Diagnosis Differential Diagnosis: svt, aflutter, electrolyte abnormality ECG Data Attestation: I personally reviewed and interpreted this ECG (s) as follows: Prior ECG tracings: available for review Interpretation: svt rate of 150, no acute ischemic findings 2nd ekg sinus rate of 95, no acute ischemic findings HPI General Mode of arrival: ambulatory. Date/Time Provider Initiated Documentation: 03/02/23 18:37. Limitations to Documentation: no limitations. Information obtained by: patient. History of Present Illness 72 year old F presents to the emergency department with the chief complaint of palpitations, described as moderate, Patient started experiencing this hour(s) (2) and it has been constant. No relieving factors improve symptom(s), No exacerbating factors reported . Patient notes no other symptoms.. Patient did receive the following treatments prior to arrival, none Related Data Home Medications Medication Instructions Recorded Confirmed calcium carbonate 600 mg-vitamin 1 cap PO DAILY 11/06/20 02/09/23 D3 12.5 mcg (500 unit) capsule (Calcium 600 with Vitamin D3) acetaminophen 500 mg tablet 500 mg PO Q6H PRN pain #90 tabs 03/03/21 02/09/23 (Tylenol Extra Strength) Synthroid 125 mcg tablet 125 mcg PO DAILY #90 tabs 05/03/22 02/09/23 (levothyroxine) sucralfate 1 gram tablet (Carafate) 1 gm PO QACHS #14 tabs 01/29/23 02/09/23 omeprazole 20 mg capsule,delayed 20 mg PO DAILY 02/09/23 02/09/23 release metoprolol succinate 25 mg 25 mg PO DAILY #14 tabs 03/02/23 tablet,extended release 24 hr Previous Rx's Medication Instructions Recorded acetaminophen 500 mg tablet 500 mg PO Q6H PRN pain #90 tabs 03/03/21 (Tylenol Extra Strength) Synthroid 125 mcg tablet 125 mcg PO DAILY #90 tabs 05/03/22 (levothyroxine) sucralfate 1 gram tablet (Carafate) 1 gm PO QACHS #14 tabs 01/29/23 metoprolol succinate 25 mg 25 mg PO DAILY #14 tabs 03/02/23 tablet,extended release 24 hr Allergies Allergy/AdvReac Type Severity Reaction Status Date / Time epinephrine AdvReac Unknown Increased Verified 01/29/23 07:07 heart rate General KAMALJIT: 3 Review of Systems All systems reviewed & are unremarkable except as noted in HPI and below Constitutional Constitutional: Denies chills, Denies fever(s) and Denies weakness Cardiovascular Cardiovascular: Denies dyspnea Respiratory Respiratory: Denies cough and Denies dyspnea Gastrointestinal Gastrointestinal: Denies abdominal pain, Denies nausea and Denies vomiting Integumentary/Breasts Skin/Breast: Denies rash Neurologic Neurologic: Denies weakness PFSH All Active Problems (Updated 03/02/23 @ 20:24 by Jose R Soliz MD) SVT (supraventricular tachycardia) (Chronic) Ventricular tachycardia (paroxysmal) (Acute ~01/2023) Hypothyroidism (Chronic) Hyperlipidemia (Chronic) Prediabetes (Chronic) Depressive disorder (Chronic) LOCKHART (nonalcoholic steatohepatitis) (Chronic) Osteoporosis (Chronic) of forearm on DEXA 2020 Obesity (Chronic) Osteoarthritis of left knee (Acute) Vitamin D deficiency (Chronic) Rosacea (Chronic) Medical History (Updated 03/02/23 @ 20:24 by Jose R Soliz MD) Endometrial hyperplasia without atypia Postmenopausal bleeding Surgical History (Updated 09/04/21 @ 08:47 by Maryellen Painter NP) H/O dilation and curettage (~04/2016) With endometrial polypectomy for postmenopausal vaginal bleeding History of total right knee replacement (02/03/21) S/P right knee arthroscopy (05/01/13) S/P tonsillectomy and adenoidectomy Family History Mother , 83 Renal cancer Depression Heart disease Father , 86 Heart disease Son Alcohol abuse Depression COPD (chronic obstructive pulmonary disease) Paternal Grandfather No problems noted. Paternal Grandmother Diabetes Kidney disease Maternal Grandfather No problems noted. Maternal Grandmother Depression Social History (Updated 03/16/22 @ 09:01 by Mandy Crandall) Smoking/Tobacco Use Status: Never Second Hand Exposure: Yes Smoking risk assessment performed?: Yes Alcohol Intake: current Alcohol Intake frequency: a few times a month Alcohol type: wine and hard liquor Drug use: Never Substance use type: does not use Caregiver/Support person: No Household members: spouse Housing: house Communication Needs: None Do you need help understanding health information?: Never Pets and animals: Yes Pets and animals: cat(s) Sexually active: Yes Do you think of yourself as: lesbian/ortiz/homosexual Current gender identity: female What is your relationship status?: How often do you talk on the phone with friends or family?: once per week How often do you get together with friends or relatives?: once per week How often do you attend denominational or congregation services?: 4 or more times per year Do you belong to any clubs or organized social groups?: no Panel score (0-1 are the most socially isolated patients): 2 What type of physical activity do you participate in: swimming Duration: < 15 minutes/day Frequency: 1-2 times per week Inna/Zoroastrianism: Rastafari Special inna needs: No Seatbelt use: always Helmet use: Yes Helmet use: always Drive 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 Do you feel safe at home: Yes Do you feel safe in your relationship?: Yes History History 2 Para 1 Hx # Term Pregnancies Multiple births Hx # Pregnancies Ectopic pregnancies AB induced Hx Number of Living Children 1 AB spontaneous 2 Exam Const General: no acute distress Orientation: alert HENMT Head: normal to inspection Ears: external ears normal General nose exam: external nose normal Mouth: moist mucous membranes Eyes General: appearance normal, both eyes and all related structures Neck Neck: normal visual inspection Resp Effort & Inspection: normal respiratory effort and able to speak in complete sentences Auscultation: clear to auscultation bilaterally Cardio Jugular venous pressure: no JVD Rate: tachycardic Heart Sounds: no murmurs Skin General skin exam: no rashes or lesions noted Neuro General: patient alert and patient oriented x3 Extrem General: normal to inspection Psych Mental Status: mental status grossly normal Critical Care Time Critical Care Time Critical Care Time: Yes Total Critical Care Time: 45 (minutes) Attestation: time spent administering iv adenosine, frequent reassessments, hemodynamic monitoring in a patient with svt and potential to deteriorate at any time
[2023-03-02] MEDS: Normal Saline 1,000 ML 1000 ML IV (19:00)
[2023-03-02 19:04] LABS: HGB 15.8 g/dL (11.2-15.7); MCHC 33.6 % (32.0-36.0); MCV 89 fL (80-95); MPV 12.1 fL (8.0-11.0); Platelet Count 264 10^3/uL (130-400); RBC 5.27 10^6/uL (3.93-5.22); RDW 12.9 % (11.7-14.6); WBC 15.54 10^3/uL (4.4-10.8)
[2023-03-02] MEDS: Adenosine 6 MG/2 ML VIAL IVP (19:11)
[2023-03-02 19:13] VITALS: BP 134/85; PULSE 160; RESP 18; O2SAT 99
[2023-03-02 19:18] LABS: PTT Activated 27.7 sec (21.5-31.9); Prothrombin Time 10.2 sec (9.3-11.0)
[2023-03-02 19:22] LABS: ALT 81 U/L (14-59); AST 51 U/L (15-37); Albumin 3.6 g/dL (3.4-5.0); Alkaline Phosphatase 89 U/L (46-116); Anion Gap 10.1 mmol/L (3-11); BUN 17 mg/dL (7-18); Bilirubin, Total 0.6 mg/dL (0.2-1.0); CO2 27.9 mmol/L (21.0-32.0); CREATININE 1.1 mg/dL (0.55-1.02); Calcium 9.6 mg/dL (8.5-10.1); Chloride 104 mmol/L (98-107); Estimated GFR 53.72 (mL/min/1.73m2); Glucose 139 mg/dL (74-106); Magnesium 1.9 mg/dL (1.8-2.4); Potassium 3.7 mmol/L (3.5-5.1); Sodium 142 mmol/L (136-145); Total Protein 8.1 g/dL (6.4-8.2); Troponin I < 50 ng/L (<or=60)
--- NOTE | 2023-03-02 19:23 | NUR.NOTE ---
Nursing Note: Pt denied CP but felt heart flip flop. Pt found to be in SVT without other symptoms. EKG done immediately, and PIV established. 6-mg adenosine give at 1911 with MD at bedside. Pt continued to be observed.
[2023-03-02 19:29] VITALS: BP 150/48; PULSE 102; RESP 18; O2SAT 99
[2023-03-02 19:30] LABS: Absolute Eosinophil Count 0.31 10^3/uL (0.0-0.7); Absolute Lymphocyte Count 5.28 10^3/uL (1.2-3.4); Absolute Monocyte Count 0.47 10^3/uL (0.1-0.8); Absolute Neutrophil Count 9.48 10^3/uL (1.2-6.7); Atypical Lymphocytes % 2; Diff Comment Manual Differential; RBC Morphology Normal
--- NOTE | 2023-03-02 19:30 | RT.EKG_ITS ---
APPROVED REPORT Exam: Resting ECG Reason for Exam: palpitations Patient Location: E HR:95 bpm ECG Measurements Heart Rate 95 AXIS AL 190 P 55 QRSd 84 QRS 37 QT 355 T 33 QTc 447 Conclusion Sinus rhythm...normal P axis, V-rate 60- 99
[2023-03-02] MEDS: Metoprolol CR 25 MG TABCR PO (19:58)
[2023-03-02 19:59] VITALS: BP 140/71; PULSE 101; RESP 18; O2SAT 99
--- NOTE | 2023-03-02 20:11 | NUR.NOTE ---
Nursing Note: Pt thoroughly updated with plan of care and next steps. Pt thanked this RN for care.
[2023-03-02 20:34] VITALS: BP 133/65; PULSE 96; RESP 18; O2SAT 99
== END 2023-03-02 20:45 | disposition home or self-care (01) ==
PROVIDERS: Emergency Provider Emergency Medicine; PCP Nurse Practitioner Family
DX: I47.1 Supraventricular tachycardia (principal)
CPT/HCPCS: 80053; 93005; 96361; 96374; 99284; 83735; 84484; 85025; 85610; 85730; 93010; J0153

== ENCOUNTER 2023-03-21 11:01 | Outpatient (CLI) | payer OTHER, MEDICARE, SELFPAY ==
--- NOTE | 2023-03-22 11:57 | W.CARDEVENT ---
Date of service: 03/22/23 Time of Service: 11:58 Cardiac Event Recorder Referring Provider:: Maryellen Painter Indications:: Ventricular tachycardia Cardiac Event Note: This is a 14-day security monitor, reportedly ordered for ventricular tachycardia Rhythm throughout was sinus with an average heart rate of 81. Minimum was 51, maximum 142 There were very rare isolated ventricular ectopic beats, 2 couplets, no ventricular tachycardia There were occasional atrial premature beats A total of 31 self-limited atrial runs occurred. These were generally less than 5 beats in duration. There was no atrial fibrillation, no high-grade AV block, no pauses greater than 3 seconds No patient symptoms were reported
== END 2023-03-21 11:02 | disposition home or self-care (01) ==
LOC: CARDOPNVT 11:01
PROVIDERS: PCP Nurse Practitioner Family; Visit Provider Internal Medicine Cardiovascular Disease
DX: I47.20 Ventricular tachycardia, unspecified (principal); I49.1 Atrial premature depolarization

== ENCOUNTER 2023-03-25 01:06 | Outpatient (CLI) | payer OTHER, MEDICARE, SELFPAY ==
--- NOTE | 2023-03-25 08:15 | DI.MAMMO_ITS ---
Exam(s) MAMMO SCREENING EXAM: MAMMO SCREENING CLINICAL HISTORY: screening, Z12.39 TECHNIQUE: Bilateral full field digital CC and MLO mammographic images were obtained with 3D tomosyn thesis and utilizing computer aided detection (CAD). COMPARISON: Available for comparison. FINDINGS: Masses/Architectural Distortion: There is a new 4 mm nodule in the outer right breast on the CC view 11 cm from the nipple. There is also area of asymmetry in the posterior inferior right breast on the MLO view. Microcalcifications: No suspicious pleomorphic-type are seen. Skin Thickening/Nipple Retraction: None. IMPRESSION: 1. Areas seen in the right breast as described above. These area should be further evaluated with sp ot compression views. 2. Right breast ultrasound may be indicated at that time. BI-RADS Category 0 - Assessment Incomplete: Need additional imaging evaluation Breast Density - Category B - Scattered areas of fibroglandular density Breast density category C or D implies that the patient has dense breast tissue. Dense breast tissue is very common and is not abnormal but dense breast tissue can make it harder to find cancer on a ma mmogram. Also, dense breast tissue may increase their breast cancer risk. This information about the result of the mammogram report was provided to the patient to raise their awareness. Use this report when you speak with the patient about their risks for breast cancer, which includes their family hist ory. At that time, you may recommend for more screening tests (Ultrasound or MRI) as they might be us eful based on their risk. A negative radiographic report should not delay biopsy if a dominant or clinically suspicious mass is present. Up to ten percent of cancers are not identified on mammography. A negative report may reinforce clinical impression. Adenosis and dense breasts may obscure an underlying neoplasm. False positive reports average 6 to 10%. Patient will receive a letter notifying them of these results.
--- NOTE | 2023-03-25 13:15 | DI.DEXA_ITS ---
Exam(s) XR DEXA BONE DENSITY W/WO HARSHAD EXAM: XR DEXA BONE DENSITY W/WO HARSHAD CLINICAL HISTORY: osteoporosis 2020, POSTMENOPAUSAL STATUS, Z78.0 TECHNIQUE: COMPARISON: CR XR DEXA BONE DENSITY W/WO HARSHAD from 08/13/2021 FINDINGS: Lateral Spine Image: Unremarkable. No compression deformities identified. Left hip: Total T-Score: 0.5. This compares to 0.6 on the prior examination. Total Z-Score: 2.1 T- and Z-scores: Within normal limits. Note is made of osteopenia in the femoral neck with a T-score of -1.4. Lumbar Spine: Total T-Score: -0.6. This compares to -0.2 on the prior examination. Total Z-Score: 1.7 T- and Z-scores: Within normal limits. There is osteoporosis in the left forearm with a T-score of -2.8 in the proximal 3rd compared to -2.5 on the prior examination. IMPRESSION: 1. No evidence of osteoporosis in the left hip or lumbar spine. 2. Osteoporosis in the left forearm.
== END 2023-03-25 01:26 ==
LOC: DI 01:06
PROVIDERS: PCP Nurse Practitioner Family; Visit Provider Nurse Practitioner Family
DX: Z12.39 Encounter for other screening for malignant neoplasm of breast (principal); Z78.0 Asymptomatic menopausal state; Z13.820 Encounter for screening for osteoporosis; M81.0 Age-related osteoporosis without current pathological fracture
CPT/HCPCS: 77063; 77067; 77080

== ENCOUNTER 2023-03-25 01:37 | Outpatient (CLI) | payer OTHER, MEDICARE, SELFPAY ==
[2023-03-25 12:39] LABS: Abs Immature Grans 0.03 10^3/uL (0.0-0.06); Absolute Basophil Count 0.08 10^3/uL (0.0-0.2); Absolute Eosinophil Count 0.22 10^3/uL (0.0-0.7); Absolute Lymphocyte Count 4.05 10^3/uL (1.2-3.4); Absolute Monocyte Count 1.06 10^3/uL (0.1-0.8); Absolute Neutrophil Count 6.32 10^3/uL (1.2-6.7); Basophils % 0.7; Eosinophils % 1.9; HCT 45.3 % (36.0-46.0); HGB 15.3 g/dL (11.2-15.7); Immature Grans % 0.3; Lymphocytes % 34.4; MCH 30.8 pg (27.0-33.0); MCHC 33.8 % (32.0-36.0); MCV 91 fL (80-95); MPV 12.5 fL (8.0-11.0); Neutrophils % 53.7; Platelet Count 266 10^3/uL (130-400); RBC 4.97 10^6/uL (3.93-5.22); RDW 12.9 % (11.7-14.6); RDW-SD 42.8 fL; WBC 11.76 10^3/uL (4.4-10.8)
[2023-03-25 12:52] LABS: Hemoglobin A1C 5.6 % (<5.7)
[2023-03-25 13:19] LABS: ALT 69 U/L (14-59); AST 52 U/L (15-37); Albumin 3.2 g/dL (3.4-5.0); Alkaline Phosphatase 79 U/L (46-116); Anion Gap 6.8 mmol/L (3-11); BUN 18 mg/dL (7-18); Bilirubin, Total 0.5 mg/dL (0.2-1.0); CO2 30.2 mmol/L (21.0-32.0); CREATININE 0.8 mg/dL (0.55-1.02); Calcium 9.1 mg/dL (8.5-10.1); Chloride 105 mmol/L (98-107); Estimated GFR 78.72 (mL/min/1.73m2); Glucose 100 mg/dL (74-106); Potassium 4.9 mmol/L (3.5-5.1); Sodium 142 mmol/L (136-145); TSH (W/Ref FT4) 1.65 uIU/mL (0.36-3.74)
== END 2023-03-25 01:38 | disposition home or self-care (01) ==
LOC: LBO 01:37
PROVIDERS: PCP Nurse Practitioner Family; Visit Provider Nurse Practitioner Family
DX: E03.9 Hypothyroidism, unspecified (principal); R73.03 Prediabetes; R10.13 Epigastric pain; K75.81 Nonalcoholic steatohepatitis (NASH)
CPT/HCPCS: 36415; 80053; 83036; 84443; 85025

== ENCOUNTER 2023-03-30 01:30 | Outpatient (CLI) | payer OTHER, MEDICARE, SELFPAY ==
--- NOTE | 2023-03-30 | DI.MAMMO_ITS ---
Exam(s) MG MAMMO SCREEN CALL BACK UNI US BREAST RT LIMITED EXAM: MG MAMMO SCREEN CALL BACK UNI and U/S breast RT limited CLINICAL HISTORY: F/U MAMMO, R92.8,NEW 4 MM NODULE,ASYMMETRY POST INF RT BREAST. TECHNIQUE: Craniocaudal and mediolateral oblique Full Field Digital Mammography views of the right b reast with Computer Aided Diagnosis followed by Tomosynthesis and right breast ultrasound. COMPARISON: Comparison is made with prior examinations. FINDINGS: Mammography/Tomosynthesis: Masses/Architectural Distortion: There is again seen a small well-circumscribed nodule in the outer r ight breast. The area in the posterior right breast on the MLO view is less concerning. Microcalcifictions: No suspicious pleomorphic-type are seen. Skin Thickening/Nipple Retraction: None. Limited right breast US: Echotexture: Normal appearance of the glandular tissue. Shadowing: No suspicious foci. Cyst: None. Solid lesions: None seen. Ductal dilation: None. IMPRESSION: 1. No evidence of malignancy is noted. 2. A six-month follow-up right mammogram is recommended for re-evaluation. 3. The findings were discussed with the patient on the date of the examination. BI-RADS Category 3 - 6 month - Probably Benign Finding: Recommend follow-up imaging in 6 months Breast Density - Category B - Scattered areas of fibroglandular density Breast density Category C or D implies that the patient has dense breast tissue. Dense breast tissue can make it harder to find cancer on a mammogram. Dense breast tissue is also associated with an incr eased risk of breast cancer. This information about the result of the mammogram report was provided to the patient to raise their awareness. Use this report when you speak with the patient about their risks for breast cancer, which includes their family history. At that time, you may recommend additional screening tests (Ultrasoun d or MRI) as these tests may add significant information. A negative radiographic report should not delay biopsy if a dominant or clinically suspicious mass is present. Up to ten percent of cancers are not identified on mammography. A negative report may reinforce clinical impression. Adenosis and dense breasts may obscure an underlying neoplasm. False positive reports average 6 to 10%. Patient will receive a letter notifying them of these results.
== END 2023-03-30 01:50 ==
LOC: DI 01:30
PROVIDERS: PCP Nurse Practitioner Family; Visit Provider Nurse Practitioner Family
DX: Z12.31 Encounter for screening mammogram for malignant neoplasm of breast (principal); N63.12 Unspecified lump in the right breast, upper inner quadrant
CPT/HCPCS: 76642; 77063; 77067

== ENCOUNTER → 2023-06-13 00:53 | Outpatient (CLI) | payer OTHER, MEDICARE, SELFPAY ==
--- NOTE | 2023-06-13 08:06 | DI.US_ITS ---
APPROVED REPORT EXAM: Comprehensive 2D, Doppler, and color-flow Echocardiogram Patient Location: Out-Patient Pin Ticket Machine Operator: Shayne Romero RDCS (AE) Indications: frequent SVT Other Information Study Quality: Good Conclusion Normal left ventricular wall thickness and chamber size. Ejection fraction is 65%. Wall motion is n ormal Normal right ventricular size and systolic function Both atria are normal in size There is no structural or hemodynamically significant valvular disease Wall motion Left Ventricle The left ventricle is normal size. The left ventricular systolic function is normal. The left ventric ular ejection fraction is within the normal range. There is normal left ventricular wall thickness. T here is normal LV segmental wall motion. There is no ventricular septal defect visualized. LVEF is 65 %. Right Ventricle The right ventricle is normal size. The right ventricular systolic function is normal. The RVSP is 9. 9 mmHg. Atria The left atrium size is normal. The right atrium size is normal. The interatrial septum is intact wit h no evidence for an atrial septal defect. Aortic Valve The aortic valve is normal in structure. Aortic valve is trileaflet. There is no aortic valvular sten osis. No aortic regurgitation is present. Mitral Valve The mitral valve is normal in structure. No evidence of mitral valve stenosis. There is no mitral hannah ve regurgitation noted. Tricuspid Valve The tricuspid valve is normal in structure. There is no tricuspid valve stenosis. Trace tricuspid reg urgitation. Pulmonic Valve The pulmonary valve is normal in structure. There is no pulmonic valvular stenosis. There is no pulmo dennis valvular regurgitation. Great Vessels The aortic root is normal in size. The ascending aorta is normal in size. Aortic arch is not well vis ualized. IVC is normal in size and collapses >50% with inspiration. Pericardium There is no pericardial effusion. 2D Dimensions IVSD d PLAX 0.88 cm F: 0.6-1.0 Ao Root d 2.78 cm F: 2.7 - 3.3 LVPW d PLAX 0.87 cm F: 0.6 - 1.0 Ao Asc Diam d 2.54 cm F: 2.3 - 3.1 LVID d PLAX 4.59 cm F: 3.8 - 5.2 LVDs 2.87 cm F: 2.2 - 3.5 LV EF Teichholz 67.5 % FS 37.44 % LV EDV (Teich) 96.8 mL LV ESV (Teich) 31.4 mL Stroke Vol Index (Teich) 30.42 M-Mode TAPSE 2.97 cm (M/F) >1.7 Auto EF LV EDV A4C 78.0 mL LV EDV A2C 77.9 mL LV EDV BP 78.0 mL LV ESV A4C 27.6 mL LV ESV A2C 25.2 mL LV ESV BP 26.1 mL LVEF(%) A4C 64.7 % LVEF(%) A2C 67.7 % LVEF(%) BP 66.5 % LV SV A4C 50.4 ml LV SV A2C 52.7 ml LV SV BP 51.9 ml LV CO A4C 3.5 L/min LV CO A2C 3.4 L/min LV CO BP 3.4 L/min HR A4C 68.84 BPM HR A2C 64.63 BPM LV EDV Index (BP) LA Volume LA Length A4C 5.1 cm LA Length A2C LA Area A4C s 14.15 cm2 LA Area A2C s LA Vol A4C A-L 32.99 mL LA Vol A2C A-L LA Vol Biplane A-L LA Vol A4C MOD 32.7 mL LA Vol A2C MOD LA Vol BP MOD RA Volume RA Area A4C 7.1 cm2 RA ESV A4C (A-L) 11.0mL RA Vol/BSA A4C A-L RA Length A4C 3.9 cm RA ESV A4C (MOD) 10.9mL LV Diastology MV E' medial 0.118 (>0.07 m/s) MV E Vmax 0.94 (0.4-1.3 m/s) MV E/E' MED 7.99 (<14) MV A Vmax 0.85 (0.4-1.3 m/s) MV E' lateral 0.117 (>0.1 m/s) E/A Ratio 1.1 MV E/E' LAT 8.09 (<14) MV E' Average 0.117 m/s MV E/E'(average) 8.04 Aortic Valve AoV Vmax 1.68 m/s LVOT Vmax 1.52 m/s AoV Peak Grad 11.3 mmHg LVOT Peak Grad 9.3 mmHg AoV Area (Vmax) 2.01 cm2 LVOT VTI 0.372 m AoV VTI 0.407 m LVOT Mean Grad 5.2 mmHg AoV Mean Franko. 1.16 m/s LVOT SV 82.74 mL AoV Mean Grad 6.2 mmHg LVOT Diam s 1.65 cm AoV Area (VTI) 2.03 cm2 Velocity Ratio 0.90 Mitral Valve MV DT 238 (160-240 msec) Pulmonary Valve PV Vmax 1.06 (0.5-1.5 m/s) RVOT Vmax 0.64 m/s PV Peak Grad 4.5 mmHg RVOT Peak Gr. 1.6 mmHg PV Mean Franko 0.61 m/s RVOT VTI 0.161 m PV Mean Grad 1.7 mmHg RVOT Mean Gr. 0.9 mmHg Tricuspid Valve RA Pressure 3.00 mmHg TR Vmax 1.32 m/s TR Peak Grad 6.9 mmHg RVSP (TR) 9.9 mmHg
== END ==
PROVIDERS: PCP Nurse Practitioner Family; Visit Provider Nurse Practitioner Family
DX: I47.1 Supraventricular tachycardia (principal)
CPT/HCPCS: 93306

== ENCOUNTER → 2023-09-29 00:07 | Outpatient (CLI) | payer OTHER, MEDICARE, SELFPAY ==
--- NOTE | 2023-09-29 07:30 | DI.MAMMO_ITS ---
Exam(s) MG MAMMO DIAGNOSTIC UNI US BREAST RT LIMITED EXAM: MG MAMMO DIAGNOSTIC UNI CLINICAL HISTORY: 6 mo f/u,r92.8,z09. COMPARISON: US US BREAST RT LIMITED from 09/29/20232013 through March 2023 TECHNIQUE: Craniocaudal and mediolateral oblique Full Field Digital Mammography views of the right b reast with Computer Aided Diagnosis followed by Tomosynthesis and spot compression CC and MLO views w ith tomography. Targeted right breast ultrasound. FINDINGS: Mammography/Tomosynthesis: Masses: Stable small circumscribed area of nodularity in the posterolateral right breast. Architectural Distortion: None seen. Microcalcifications: No suspicious pleomorphic-type are seen. Skin Thickening/Nipple Retraction: None. Right breast US: Echotexture: Normal appearance of the glandular tissue. Shadowing: No suspicious foci. Cyst: 4 x 3 x 5 millimeter smoothly marginated hypoechoic lesion 9 o'clock position 7 cm from the nip ple appear to correspond to the mammographic nodule. Severe represents a small cyst or intramammary lymph node. Solid lesions: None seen. Ductal dilation: None. IMPRESSION: 1. No evidence of malignancy is noted. 2. Bilateral screening mammography recommended in 1 year.. BI-RADS Category 2 - Benign Findings Breast Density - Category B - Scattered areas of fibroglandular density A negative radiographic report should not delay biopsy if a dominant or clinically suspicious mass is present. Up to ten percent of cancers are not identified on mammography. A negative report may reinforce clinical impression. Adenosis and dense breasts may obscure an underlying neoplasm. False positive reports average 6 to 10%. Patient will receive a letter notifying them of these results.
== END ==
PROVIDERS: PCP Nurse Practitioner Family; Visit Provider Nurse Practitioner Family
DX: R92.8 Other abnormal and inconclusive findings on diagnostic imaging of breast (principal); Z09 Encounter for follow-up examination after completed treatment for conditions other than malignant neoplasm
CPT/HCPCS: 76642; 77061; 77065; G0279

== ENCOUNTER 2024-03-21 04:54 | Outpatient (CLI) | payer OTHER, MEDICARE, SELFPAY ==
[2024-03-21 12:19] LABS: Anion Gap 6.4 mmol/L (3-11); BUN 14 mg/dL (7-18); CO2 31.6 mmol/L (21.0-32.0); CREATININE 0.8 mg/dL (0.55-1.02); Calcium 9.2 mg/dL (8.5-10.1); Calculated LDL 110 mg/dL (<100); Chloride 104 mmol/L (98-107); Cholesterol 176 mg/dL (<200); Estimated GFR 78.24 (mL/min/1.73m2); Glucose 102 mg/dL (74-106); HDL Cholesterol 42 mg/dL (40-60); Potassium 4.4 mmol/L (3.5-5.1); Sodium 142 mmol/L (136-145); TSH (W/Ref FT4) 3.44 uIU/mL (0.36-3.74); Triglyceride 122 mg/dL (<150)
[2024-03-21 12:42] LABS: Hemoglobin A1C 5.8 % (<5.7)
[2024-03-21 13:58] LABS: Lab Add On Test DONE
[2024-03-21 14:27] LABS: ALT 50 U/L (14-59); AST 40 U/L (15-37); Albumin 3.4 g/dL (3.4-5.0); Alkaline Phosphatase 69 U/L (46-116); Bilirubin, Direct 0.2 mg/dL (0.0-0.2); Bilirubin, Total 0.52 mg/dL (0.2-1.0); Total Protein 7.6 g/dL (6.4-8.2)
[2024-03-22 09:09] LABS: HBs Antibody, Quant 4.6 mIU/mL (See Note); Hep B Surface Ab Negative (See Note); Hepatitis B Core Antibody Negative (Negative); Hepatitis B Surface Antigen Negative (Negative)
[2024-03-22 09:50] LABS: HIV-1/2 Ag & Ab Screen Negative (Negative)
== END 2024-03-21 04:55 | disposition home or self-care (01) ==
LOC: LOS 04:55
PROVIDERS: PCP Nurse Practitioner Family; Visit Provider Nurse Practitioner Family
DX: Z11.4 Encounter for screening for human immunodeficiency virus [HIV] (principal); E03.9 Hypothyroidism, unspecified; Z00.00 Encounter for general adult medical examination without abnormal findings; Z11.59 Encounter for screening for other viral diseases; K75.81 Nonalcoholic steatohepatitis (NASH)
CPT/HCPCS: 36415; 80048; 80061; 80076; 86704; 86706; 87340; 87389; 83036; 84443

== ENCOUNTER → 2024-03-28 00:44 | Outpatient (CLI) | payer OTHER, MEDICARE, SELFPAY ==
--- NOTE | 2024-03-28 06:30 | DI.MAMMO_ITS ---
Exam(s) MAMMO SCREENING EXAM: MAMMO SCREENING CLINICAL HISTORY: screening,z12.39 TECHNIQUE: Mammograms were interpreted according to the usual protocol including computer analysis w [facility] CAD system, tomosynthesis and C-view imaging. COMPARISON: 2014 through 2022 FINDINGS: The breasts are composed of scattered fibroglandular densities, Breast Density category B. No suspicious masses or suspicious microcalcifications are seen. No skin thickening or abnormal axillary lymph nodes are seen. There has been no significant change from prior exams. IMPRESSION: BI-RADS Category 1, Negative mammogram Yearly screening mammography is recommended. Breast Density - Category B, scattered fibroglandular densities. A negative radiographic report should not delay biopsy if a dominant or clinically suspicious mass is present. Up to ten percent of cancers are not identified on mammography. A negative report may reinforce clinical impression. Adenosis and dense breasts may obscure an underlying neoplasm. False positive reports average 6 to 10%. Patient will receive a letter notifying them of these results.
== END ==
PROVIDERS: PCP Nurse Practitioner Family; Visit Provider Nurse Practitioner Family
DX: Z12.39 Encounter for other screening for malignant neoplasm of breast (principal)
CPT/HCPCS: 77063; 77067

== ENCOUNTER 2024-04-02 05:43 | Outpatient (CLI) | payer OTHER, MEDICARE, SELFPAY ==
--- NOTE | 2024-04-02 14:45 | W.NUTRFU ---
Date of service: 04/02/24 Time of Service: 13:00 Nutrition Note NOTE: Sara comes in for nutrition visit today regarding her referral for weight mgt. On 03/29/24 she weight 122kg (268.4lbs) and was 64 which translates to a BMI of 47.7 She retired in 2019 and reports less movement over this time. estimated energy needs 2208kcals. Suggested 1600kcals and reviewed carb counting for 40% of kcals from CHO or 160g total carbs. She has a PMH significant for prediabetes with an a1c of 5.8% last month, CHUCK, Hypothyroid, HLD, [place], Depression, stage III obesity. had R knee replacement. Recent rx for synthroid, takes calcium/vitamin D daily (600mg/500IU) She states she believes her portion control is off. She is not a picky eater when it comes to different food choices. She reports rarely eating dessert. Typical meals: 2 eggs with 1 tbsp cheese with fruit and 2 moz[place] chiu patties or a piece of chiu and 2 pieces raisin toast with butter. She may also have cream of wheat Lunch is usually a ham or tuna s/w or a colorful salad with cheese and some tortila chips She lives with her partner who is a meat and potatoes type of person per Sara and they will have something like that for dinner. snacks include triscuits and pcs of cheese. usual diet assessed as lower in fiber and high in kcals due to higher intake of animal protein choices. Also assessed at excessive CHO intake with raisin toast, sandwiches, higher portion of starches at dinners and any snacking like triscuits (eats >3 servings of these at one time often) We discussed keeping track of carbs and referred to 160g carbs or ~10servings (we reviewed serving sizes and CHO sources) and prioritizing keeping added sugars under 25g and fiber consistently at 25g at a minimum( but getting there slowly) Encouraged plant protein to replace or compliment her animal choices and gave some examples of plant protein choices and how to use. I did suggest higher dose of vitamin D (suggested 2,000 in summer and 4,000 in winter. and would rather see her get calcium from food than supplement and reviewed calcium sources that meet her goal of getting more fiber (broccoli, beans, greens, whole soy, almonds...) gave pt my card to contact for any need for more resources, or follow up. Time Spent in Nutritional Counseling and Treatment: 60 min
== END 2024-04-02 05:44 | disposition home or self-care (01) ==
LOC: DS 05:45
PROVIDERS: PCP Nurse Practitioner Family; Visit Provider Dietitian, Registered
DX: E66.01 Morbid (severe) obesity due to excess calories (principal); Z68.42 Body mass index [BMI] 45.0-49.9, adult; Z71.3 Dietary counseling and surveillance; R73.03 Prediabetes
CPT/HCPCS: 00123; 97802